=== PATIENT | female | born 1945 | race Caucasian/White ===

== ENCOUNTER 2019-06-05 07:46 | Observation (INO) | payer MEDICARE, SELFPAY ==
--- NOTE | ~2019-06-05 | CT_ITS ---
EXAMINATION: CT abdomen pelvis w con EXAM DATE: 06/05/2019 09:14 INDICATION: Hematochezia. TECHNIQUE: Spiral CT of the abdomen and pelvis was performed following intravenous injection of 100 m L Omnipaque 350. Axial, coronal and sagittal images were reviewed. The dose-length product (DLP) fo r this examination was 395.18 mGy-cm. The exposure was tailored according to patient size (auto mA e xposure control), and iterative reconstruction (ASIR) was used as additional dose reduction technique . Comparison is made to prior examination from 01/18/2016. FINDINGS: The liver, spleen, adrenal glands and pancreas are unremarkable. Gallbladder is unremarkab le. No biliary obstruction. Portal and splenic veins are patent. Kidneys enhance symmetrically. T here is no hydronephrosis. The uterus is unremarkable. The bladder is unremarkable. There is no retroperitoneal or pelvic lymphadenopathy. There is mild scattered arteriosclerotic disease. The appendix is not positively visualized. There is no pericecal inflammatory change to suggest appe ndicitis. The stomach and small bowel are unremarkable. There is edema of the descending and sigmo id colon, consistent with colitis, most likely infectious etiology. Previously seen right pleural ef fusion and atelectasis have resolved. The heart is normal in size. There are no pericardial or pleu ral effusions. The lung bases are unremarkable. There are no osteoblastic or osteolytic lesions annie ntified. Chronic L1 burst fracture, with interval healing compared to previous examination. IMPRESSION: 1. Descending and sigmoid colonic colitis. Reviewed, dictated and finalized at location [employer]
[2019-06-05 07:53] VITALS: BP 132/78; PULSE 97; RESP 20; TEMP 36.9; O2SAT 95
--- NOTE | 2019-06-05 08:05 | ED.ABDPAIN ---
HPI - Abdominal Pain General Chief Complaint: Abdominal Pain Stated Complaint: bloody stools Time Seen by Provider: 06/05/19 07:54 Source: patient Mode of arrival: ambulatory Limitations: no limitations History of Present Illness HPI narrative: Pt is a 73 y/o female who presents to the ED with c/o hematochezia since 2AM. Pt states that she has had 12 episodes of hematochezia and describes it as spots of bright red blood. He reports associated ABD cramping and nausea. She denies fever or vomiting. Pt takes 325mg of ASA daily. She has had x2 colonscopy's and she is scheduled to have another one on 07/06/[address] Roberto her GI specialist. MD elicited complaint: other (hematochezia) Pertinent past history: none Onset (ago): hour(s) (6) Pain Consistency: constant Quality: cramping Associated symptoms: nausea Related Data Home Medications Medication Instructions Recorded Confirmed calcium carbonate 500 mg (1,250 1 tablet PO TID 05/21/19 mg)-vitamin D3 200 unit tablet cholecalciferol (vitamin D3) 1,250 50,000 unit PO .twice monthly cap 05/21/19 mcg (50,000 unit) capsule fexofenadine 180 mg tablet 180 mg PO DAILY 05/21/19 letrozole 2.5 mg tablet 2.5 mg PO DAILY 05/21/19 lisinopril 10 mg tablet 10 mg PO DAILY 05/21/19 [id number] 0.4 mg-calcium 162 1 tablet PO DAILY 05/21/19 mg-iron 18 [id number]-[id number] tablet Allergies Allergy/AdvReac Type Severity Reaction Status Date / Time tamoxifen Allergy Unknown Verified 02/17/18 13:03 Review of Systems Review of Systems: All systems reviewed & are unremarkable except as noted in HPI and below Constitutional: Constitutional: Denies fever(s) Gastrointestinal: Gastrointestinal: Reports hematochezia, Reports GI cramping, Reports nausea and Denies vomiting PMF Past Medical History Medical History (Updated 06/05/19 @ 09:37 by Kirby Michele DO) DVT (deep venous thrombosis) HTN (hypertension) Hx of breast cancer Pulmonary embolism Right humeral fracture Surgical History Surgical History (Updated 06/05/19 @ 08:47 by Starla Ivory) H/O bilateral cataract extraction H/O colonoscopy H/O left breast biopsy H/O right mastectomy Social History Social History Smoking status: Never smoker Second hand tobacco smoke exposure: No Alcohol intake: never Exam Narrative: Exam Narrative: APPEARANCE: No acute distress, nontoxic, resting in bed HEENT: Normocephalic, atraumatic, OMM RESPIRATORY: No respiratory distress, clear to auscultation bilaterally with no rhonchi wheezing or rales CARDIOVASCULAR: RRR s murmur ABDOMINAL: Soft, nondistended, tender palpation right lower quadrant left lower quadrant, no tenderness in right upper quadrant left upper quadrant, no rebound or guarding MUSCULOSKELETAl: Moves all extremities. No clubbing, cyanosis or edema. NEURO: Awake and alert. Following commands, speech normal, no focal deficits SKIN:: Warm, dry. Normal Color PSYCHIATRIC: Normal affect/mood Course Course Emergency Course: Discussed with patient and family results of workup and diagnosis. Discussed need for admission. Patient and family understand and agree to current treatment plan Consultations Consultation #1: Discussed case with Dr. Roberto, pt's GI specialist. He recommends Rx Zosyn and he will follow up with pt. Date: 06/05/19 Time: 09:24 Consultation #2: Discussed case with Dr. Nunes, the hospitalist. Accepted admission. Date: 06/05/19 Time: 09:29 Vital Signs Vital signs: Vital Signs Temperature 98.4 F 06/05/19 07:53 Pulse Rate 97 06/05/19 07:53 Respiratory Rate 06/05/19 07:53 Blood Pressure 132/78 06/05/19 07:53 Pulse Oximetry 95 06/05/19 07:53 Temperature 98.4 F 06/05/19 07:53 Pulse Rate 97 06/05/19 07:53 Respiratory Rate 20 06/05/19 07:53 Blood Pressure 132/78 06/05/19 07:53 Pulse Oximetry 95 06/05/19 07:53 MDM - Abdominal Pain Lab Data Res
[2019-06-05 08:50] LABS: Basophils Percent Auto 0.2 % (0.2-1.2); Eosinophils Percent Auto 0.1 % (0-4.4); Hematocrit 44.2 % (37.0-47.0); Hemoglobin 14.5 g/dL (12.0-15.0); Immature Granulocyte Absolute 0.04 K/mm3 (0.00-0.031); Immature Granulocyte Percent A 0.3 % (0-0.5); Lymphocytes Absolute Auto 0.89 K/mm3 (0.9-3.2); Lymphocytes Percent Auto 7.3 % (18.3-44.2); Mean Corpuscular HGB Conc 32.8 g/dl (32-36); Mean Corpuscular Hemoglobin 29.9 pg (26-34); Mean Corpuscular Volume 91.1 fl (80-100); Mean Platelet Volume 8.7 fl (7.4-10.4); Monocytes Absolute Auto 0.7 K/mm3 (0.1-0.6); Monocytes Percent Auto 5.5 % (2.6-8.5); Neutrophils Absolute Auto 10.6 K/mm3 (1.3-6.7); Neutrophils Percent Auto 86.6 % (45.5-73.1); Platelet Count Result 354 k/mm3 (150-375); Red Blood Count 4.85 M/mm3 (4.2-5.4); Red Cell Distribution Width 13.5 % (11.5-14.5); White Blood Count 12.2 K/mm3 (4.5-10.0)
[2019-06-05 09:03] LABS: Alanine Aminotransferase 12 U/L (4-35); Albumin Level 3.9 g/dL (3.5-5.1); Alkaline Phosphatase 90 U/L (38-126); Aspartate Amino Transferase 21 U/L (14-36); Bilirubin,Total 0.3 mg/dL (0.2-1.3); Blood Urea Nitrogen 12 mg/dL (7-17); Calcium 8.9 mg/dL (8.4-10.2); Carbon Dioxide 24 mmol/L (22-30); Chloride 106 mmol/L (98-107); Estimated CRCL calculation 46 ml/min; Estimated Glomerular Filt Rate > 60; Glucose 104 mg/dL (65-105); Lipase 22 U/L (23-300); Potassium 3.8 mmol/L (3.4-5.0); Sodium 138 mmol/L (137-145)
[2019-06-05 09:28] LABS: Partial Thromboplastin Time 27.1 SECONDS (22.3-36.8); Prothrombin Time 12.8 Seconds (11.1-14.7)
[2019-06-05 11:05] VITALS: BP 119/71; PULSE 85; RESP 18; O2SAT 94
--- NOTE | 2019-06-05 11:18 | PC.NURSE ---
This patient, Lay Douglas, was admitted to 3 Medical Room 348-. Patient/family oriented to hospital policies and general routines including ID bracelet, bed and alarms, visiting hours, pain management, procedures, bathroom and other care routines, personal items, smoking policy, room service/diet, and visiting hours. Valuables list has been completed. Information on how to activate the Rapid Response Team has been discussed. Patient/Family are encouraged to report perceived risks to care and to ask questions if they do not understand what they are told or what they should do.
[2019-06-05 11:34] VITALS: BMI 26.6
[2019-06-05 11:40] VITALS: BMI 26.2
[2019-06-05 11:55] LABS: Hematocrit 45.8 % (37.0-47.0); Hemoglobin 14.9 g/dL (12.0-15.0)
[2019-06-05] MEDS: LACTATED RINGERS 1,000 ML 125 ML IV CONT (11:56)
[2019-06-05 11:58] VITALS: BP 132/82; PULSE 73; RESP 18; TEMP 36.6; O2SAT 97
--- NOTE | 2019-06-05 12:57 | WPDGICN ---
GI Consult Note Consult date/time: 06/05/19 12:57 HPI: This very pleasant 73-year-old female was seen in consultation at the request of the hospitalist in with the patient's admission. The patient was examined and chart was reviewed. Reason for consultation bloody diarrhea. Impression: He we have a very pleasant lady with bloody diarrhea and abnormal CT imaging. This is most likely to underlying colitis. Ischemic versus infectious colitis is in the differential. Inflammatory bowel disease consideration although, I doubt this is the case. History of diverticulosis coli. GERD with dysphagia. Underlying rare strictures in the differential. Zenker's diverticulum needs to be considered in view of the history. Hypertension. DVT/PE. Breast cancer. Status post chemotherapy, radiation therapy and mastectomy. Low bone mass. Vitamin-D deficiency. Healing burst fracture lumbar vertebrae. Recommendation: Stool C&S and C diff studies. Continue antibiotics. PPI. Pending patient's clinical course may consider colonoscopy. She continues to improve quickly may defer colonoscopy for 6-8 weeks. EGD has been scheduled as an outpatient. Will require esophagram to assess for underlying Zenker's diverticulum. History: This very pleasant lady was admitted the hospital with abrupt onset of abdominal pain, cramping and diarrhea. The diarrhea eventually became bloody in nature. She has no history of bloody diarrhea in the past. She reported nausea but no vomiting or hematemesis. She denied any fever or diaphoresis, but complained of chills. Recent antibiotic intake was denied. She admits to taking Aleve twice a day 2 times a week. patient has had previous colonoscopies revealing diverticulosis coli. Patient denies any exposure to illness. The cramping was in the lower part of the abdomen that began approximately 6:00 p.m. the day prior to admission. It continued throughout the night and eventually became bloody in nature. CT imaging was obtained revealing evidence of colitis involving the descending and sigmoid colon. Patient has a history of heartburn about once a day. She is having dysphagia to solid foods. She also has some dysphagia to liquid foods and pills. She feels that things get caught in her throat and she has to cough / vomit them up. This is been going on quite a while, but does not occur every day. She reports a 5 lb weight loss in the last year. The patient complains of a cough of whitish phlegm. She does admit to be bruising easily. Physical exam: General: Patient appears in no acute distress. HEENT: Head was normocephalic sclerae is clear mouth without masses neck was supple. Heart rate rhythm regular without S3 or S4. Lungs CTA. Abdomen is soft with no guarding or rigidity. Bowel sounds were active. Neurologic cranial nerves intact. No focal defects. No clonus. Musculoskeletal system revealed no joint tenderness or swelling no muscle atrophy. Extremities reveal no significant edema. Skin is warm and dry with normal turgor. Mental status is intact. Patient is alert and oriented. Review of Systems Review of Systems: All systems reviewed & are unremarkable except as noted in HPI and below PMFSH Past Medical History Medical History Burst fracture of lumbar vertebra with routine healing Diverticulosis DVT (deep venous thrombosis) HTN (hypertension) Hx of breast cancer Chemo/RTX Low bone mass Pulmonary embolism Vitamin D deficiency Surgical History Surgical History H/O bilateral cataract extraction H/O colonoscopy H/O left breast biopsy H/O right mastectomy H/O shoulder surgery Family History Family History Mother Hypertension, Onset Age: 89 Fibromyalgia Father Acute myocardial infarct
[2019-06-05 13:39] LABS: Hematocrit 43.3 % (37.0-47.0); Hemoglobin 14.2 g/dL (12.0-15.0); Mean Corpuscular HGB Conc 32.8 g/dl (32-36); Mean Corpuscular Volume 91.5 fl (80-100); Mean Platelet Volume 8.8 fl (7.4-10.4); Platelet Count Result 381 k/mm3 (150-375); Red Blood Count 4.73 M/mm3 (4.2-5.4); Red Cell Distribution Width 13.5 % (11.5-14.5); White Blood Count 11.6 K/mm3 (4.5-10.0)
[2019-06-05 13:53] LABS: Alanine Aminotransferase 11 U/L (4-35); Albumin Level 3.9 g/dL (3.5-5.1); Alkaline Phosphatase 88 U/L (38-126); Aspartate Amino Transferase 21 U/L (14-36); Bilirubin,Total 0.4 mg/dL (0.2-1.3); CRP 1.5 mg/dL (<1.0); Phosphorus 4.2 mg/dL (2.5-4.5)
[2019-06-05 14:00] VITALS: BP 141/70; PULSE 73; RESP 18; TEMP 36.3; O2SAT 96
[2019-06-05 14:22] LABS: Thyroid Stimulating Hormone 0.966 uIU/mL (0.465-4.680)
[2019-06-05 14:25] LABS: Free T4 Free Thyroxine 1.29 ng/mL (0.78-2.19)
[2019-06-05 15:41] VITALS: BMI 26.2
--- NOTE | 2019-06-05 15:44 | PM.IMHP ---
H&P: HPI History of Present Illness Chief complaint: Colitis/GI bleed Narrative: Lay Douglas is a 73 year old female who was in her usual state of health until 6:00 p.m. on June 04. At that time she had some chills and cramping in the lower abdomen. She developed some diarrhea with cramps before each episode. At about 2:00 a.m. she was awakened by sharp hypogastric pain and passed bright red blood in the stool. She describes it as ?a couple of splashes ?. Because the bright red blood she presented the emergency department. She denied fevers nausea vomiting upper abdominal pain chest pain shortness of breath dizziness lightheadedness syncope presyncope edema or palpitations. No other abnormal bleeding. No dysuria or hematuria. She has no prior history of rectal bleeding. She had a colonoscopy in 2012 and was actually scheduled for a follow-up colonoscopy next month. She has 2 paternal aunt who had colon cancer. No other family history of colon cancer. No prior history of polyps. Review of Systems Review of Systems: All systems reviewed & are unremarkable except as noted in HPI and below PMFSH Past Medical History Medical History (Updated 06/05/19 @ 15:52 by Moses Hendrix MD) Burst fracture of lumbar vertebra with routine healing Diverticulosis DVT (deep venous thrombosis) HTN (hypertension) Hx of breast cancer Chemo/RTX Low bone mass Pulmonary embolism Pure hypercholesterolemia Vitamin D deficiency Surgical History Surgical History (Updated 06/05/19 @ 15:46 by Moses Hendrix MD) H/O bilateral cataract extraction H/O colonoscopy 2012 H/O left breast biopsy H/O right mastectomy H/O shoulder surgery Family History Family History Mother Hypertension, Onset Age: 89 Fibromyalgia Father Acute myocardial infarction, Onset Age: 85 Patient's father is Other Family history of arthritis Family history of congenital heart disease Family history of malignant neoplasm Social History Social History Smoking status: Never smoker Second hand tobacco smoke exposure: No Alcohol intake: never Substance use: never Gender identity (if verbalized by the patient): Female Spiritual care concerns: No Agree to blood products: Yes Meds Home Medications and Allergies Home Medications Medication Instructions Recorded Confirmed Type aspirin 325 mg tablet 325 mg PO DAILY #1 tablet 05/21/19 06/05/19 Rx calcium carbonate 500 mg (1,250 1 tablet PO DAILY 05/21/19 06/05/19 History mg)-vitamin D3 200 unit tablet cholecalciferol (vitamin D3) 1,250 50,000 unit PO .twice monthly cap 05/21/19 06/05/19 History mcg (50,000 unit) capsule lisinopril 10 mg tablet 10 mg PO DAILY 05/21/19 06/05/19 History [id number]-zdr-PG 0.4 mg-calcium 162 1 tablet PO DAILY 05/21/19 06/05/19 History mg-iron 18 oh-lsqoqpq-iyrbbl tablet Allergies Allergy/AdvReac Type Severity Reaction Status Date / Time tamoxifen Allergy Unknown Verified 02/17/18 13:03 Vital Signs Vital Signs - 24 hr 06/05/19 07:53 06/05/19 11:05 06/05/19 11:58 Temperature 98.4 F 97.8 F Pulse Rate 97 85 73 Respiratory Rate 20 18 18 Blood Pressure 132/78 119/71 132/82 Pulse Oximetry 95 94 97 06/05/19 14:00 Temperature 97.4 F L Pulse Rate 73 Respiratory Rate 18 Blood Pressure 141/70 H Pulse Oximetry 96 Exam Narrative: Exam Narrative: HEENT: EOMI, PERRL, pharyngeal mucosa pink and intact NECK: No JVD, adenopathy, or thyromegaly CHEST: Clear to auscultation. Normal effort. HEART: NL S1/S2, regular, no murmur ABDOMEN: BS+, soft, TENDER TO PALPATION OF THE HYPOGASTRIUM AND BOTH LOWER QUADRANTS WITHOUT REBOUND OR GUARDING EXTREMITIES: No cyanosis, edema, or clubbing NEUROLOGIC: CN intact and symmetric to inspection. MUSCULOSKELETAL: Tone and strength symmetric. PSYCH: Alert. [place]
--- NOTE | 2019-06-05 15:59 | PCNSR ---
On 06/05/19, the student, Mary Sanz, provided care and completed [facility] documentation on this patient. I have reviewed the student's documentation and agree with the findings.
[2019-06-05 18:25] LABS: Hemoglobin 13.6 g/dL (12.0-15.0)
[2019-06-05 20:45] VITALS: PULSE 69; RESP 20; O2SAT 95
[2019-06-05 21:38] VITALS: BP 127/64; PULSE 69; RESP 20; TEMP 36.3; O2SAT 95
[2019-06-06 00:06] LABS: Hematocrit 39.1 % (37.0-47.0); Hemoglobin 12.9 g/dL (12.0-15.0)
[2019-06-06 05:34] VITALS: BP 110/58; PULSE 64; RESP 18; TEMP 36.1; O2SAT 95
[2019-06-06 06:45] LABS: Basophils Percent Auto 0.2 % (0.2-1.2); Eosinophils Absolute Auto 0.2 K/mm3 (0-0.3); Eosinophils Percent Auto 1.8 % (0-4.4); Hematocrit 39.3 % (37.0-47.0); Hemoglobin 12.9 g/dL (12.0-15.0); Immature Granulocyte Absolute 0.04 K/mm3 (0.00-0.031); Immature Granulocyte Percent A 0.4 % (0-0.5); Lymphocytes Absolute Auto 1.86 K/mm3 (0.9-3.2); Lymphocytes Percent Auto 18.9 % (18.3-44.2); Mean Corpuscular HGB Conc 32.8 g/dl (32-36); Mean Corpuscular Hemoglobin 29.8 pg (26-34); Mean Corpuscular Volume 90.8 fl (80-100); Mean Platelet Volume 8.8 fl (7.4-10.4); Monocytes Absolute Auto 0.9 K/mm3 (0.1-0.6); Monocytes Percent Auto 9.1 % (2.6-8.5); Neutrophils Absolute Auto 6.8 K/mm3 (1.3-6.7); Neutrophils Percent Auto 69.6 % (45.5-73.1); Platelet Count Result 363 k/mm3 (150-375); Red Blood Count 4.33 M/mm3 (4.2-5.4); Red Cell Distribution Width 13.7 % (11.5-14.5); White Blood Count 9.8 K/mm3 (4.5-10.0)
[2019-06-06 07:05] LABS: Blood Urea Nitrogen 8 mg/dL (7-17); CRP 2.5 mg/dL (<1.0); Calcium 8.5 mg/dL (8.4-10.2); Carbon Dioxide 26 mmol/L (22-30); Chloride 104 mmol/L (98-107); Estimated CRCL calculation 41 ml/min; Estimated Glomerular Filt Rate > 60; Glucose 94 mg/dL (65-105); Potassium 3.9 mmol/L (3.4-5.0); Sodium 139 mmol/L (137-145)
[2019-06-06 08:45] VITALS: PULSE 64; RESP 18; O2SAT 95
--- NOTE | 2019-06-06 10:07 | WPDGIPROGNO ---
Subjective Date/time seen: 06/06/19 10:07 This very pleasant lady's feeling better. Having no further diarrhea or bleeding. Blood work has been reviewed. Tolerating clear liquids. No significant abdominal pain reported. General: very pleasant patient in no acute distress. HEENT: Head was normocephalic sclerae is clear mouth without masses neck was supple. Heart: Rate rhythm regular without S3 or S4. Lungs: CTA. Abdomen: Soft with no guarding or rigidity. Bowel sounds were active. Neurologic: Cranial nerves 2 through 12 intact. No focal defects. No clonus. Musculoskeletal system: Revealed no joint tenderness or swelling no muscle atrophy. Extremities: Reveal no significant edema. Skin: Warm and dry with normal turgor. Mental status: intact. Patient is alert and oriented. Impression: He we have a very pleasant lady with bloody diarrhea and abnormal CT imaging. This is most likely to underlying colitis. Ischemic versus infectious colitis is in the differential. Inflammatory bowel disease consideration although, I doubt this is the case. History of diverticulosis coli. GERD with dysphagia. Underlying rare strictures in the differential. Zenker's diverticulum needs to be considered in view of the history. Hypertension. DVT/PE. Breast cancer. Status post chemotherapy, radiation therapy and mastectomy. Low bone mass. Vitamin-D deficiency. Healing burst fracture lumbar vertebrae. Recommendation: Advance diet as tolerated. Stool cultures pending. C diff pending. Will plan outpatient colonoscopy in 6-8 weeks. If patient develops any significant bleeding or increasing abdominal pain will proceed with flexible sigmoidoscopy/ colonoscopy earlier. Outpatient esophagram prior to EGD. Objective Data Vital Signs Vital Signs: Vital Signs - 24 hr 06/05/19 11:05 06/05/19 11:58 06/05/19 14:00 Temperature 36.6 C 36.3 C L Pulse Rate 85 73 73 Respiratory Rate 18 18 18 Blood Pressure 119/71 132/82 141/70 H Pulse Oximetry 94 97 96 06/05/19 20:45 06/05/19 21:38 06/06/19 05:34 Temperature 36.3 C L 36.1 C L Pulse Rate 69 69 64 Respiratory Rate 20 20 18 Blood Pressure 127/64 110/58 L Pulse Oximetry 95 95 95 Intake/Output Intake/Output: Intake & Output 06/03/19 06/04/19 06/05/19 06/06/19 23:59 23:59 23:59 23:59 Intake Total 1420 571 Output Total 300 Balance 1420 271 Meds/Results Medications: Active Medications Generic Name Dose Route Start Last Admin Trade Name Freq PRN Reason Stop Dose Admin Guaifenesin/Dextromethorphan 5 ml 06/05/19 12:52 Robitussin-Dm Syrup PO Q4H PRN Cough Piperacillin/Tazobactam/Dextrose 3.375 gm in 50 mls @ 100 mls/hr 06/05/19 16:00 06/06/19 09:59 Zosyn 3.375 Gm/D5w 50ml Pm IVPB 100 mls/hr Q6H GREER Administration Potassium Cl/Dextrose/Lact Ringer's 1,000 mls @ 90 mls/hr 06/05/19 16:30 06/06/19 09:59 Kcl 20 Meq/D5lr IV CONT 0 mls/hr .Q11H7M GREER Infusion Radiology Results: ITS Impressions Abdomen/Pelvis CT 06/05/19 09:17 IMPRESSION: 1. Descending and sigmoid colonic colitis. Labs Labs: Laboratory Results - last 24 hr 06/05/19 06/05/19 06/05/19 11:35 13:32 13:32 WBC RBC Hgb 14.9 Hct 45.8 MCV MCH MCHC RDW Plt Count MPV Immature Gran % (Auto) Neut % (Auto) Lymph % (Auto) [place] % (Auto) Eos % (Auto) Baso % (Auto) Lymph # (Auto) [place] # (Auto) Eos # (Auto) Baso # (Auto) Abs Immat Gran (auto) Absolute Neuts (auto) Absolute Nucleated RBC Nucleated RBC % PT INR Sodium Potassium Chloride Carbon Dioxide BUN Creatinine Estim Creat Clear Calc Estimated GFR Glucose Calcium Phosphorus Magnesium Total Bilirubin Direct Bilirubin AST ALT Alkaline Phosphatase C-Reactive Protein Total Protein Albumin TSH 0.966 Free T4
[2019-06-06 11:06] LABS: Hematocrit 41.6 % (37.0-47.0); Hemoglobin 13.4 g/dL (12.0-15.0); Mean Corpuscular HGB Conc 32.2 g/dl (32-36); Mean Corpuscular Volume 93.1 fl (80-100); Mean Platelet Volume 8.6 fl (7.4-10.4); Platelet Count Result 347 k/mm3 (150-375); Red Blood Count 4.47 M/mm3 (4.2-5.4); Red Cell Distribution Width 14.1 % (11.5-14.5); White Blood Count 9.3 K/mm3 (4.5-10.0)
[2019-06-06] MEDS: PANTOPRAZOLE 40 MG TABLET PO ×2 (11:06→21:33)
[2019-06-06 11:20] LABS: Blood Urea Nitrogen 7 mg/dL (7-17); Calcium 8.5 mg/dL (8.4-10.2); Carbon Dioxide 24 mmol/L (22-30); Chloride 107 mmol/L (98-107); Estimated CRCL calculation 41 ml/min; Estimated Glomerular Filt Rate > 60; Glucose 108 mg/dL (65-105); Magnesium 1.9 mg/dL (1.6-2.3); Phosphorus 3.5 mg/dL (2.5-4.5); Potassium 3.7 mmol/L (3.4-5.0); Sodium 140 mmol/L (137-145)
[2019-06-06] MEDS: metroNIDAZOLE 250 MG TABLET 500 MG PO ×2 (13:29→21:33)
[2019-06-06 14:00] VITALS: BP 111/72; PULSE 79; RESP 20; TEMP 36.2; O2SAT 97
--- NOTE | 2019-06-06 14:49 | PM.IMPN ---
Progress Note: A&P Assessment and Plan (1) Acute GI bleeding: Code(s): K92.2 - Gastrointestinal hemorrhage, unspecified Status: Acute Assessment and Plan: Clinically due to acute colitis as seen on CT scan Acute episode seems to have subsided Monitor hemoglobin and hematocrit (2) Colitis: Code(s): K52.9 - Noninfective gastroenteritis and colitis, unspecified Status: Acute Assessment and Plan: As indicated by CT scanning, descending and sigmoid Differential diagnosis includes infectious, ischemic, inflammatory bowel disease Stool for enteric pathogens, Clostridium difficile, giardiasis, rotavirus Empiric IV Zosyn Advanced diet IV fluids to saline lock if diet tolerated Colonoscopy per GI travel sales consultant (3) History of deep venous thrombosis or pulmonary embolus: Status: Acute Assessment and Plan: Mechanical DVT prophylaxis due to acute bleeding Subjective Date/time seen: 06/06/19 14:49 Interval history: No further bowel movements. Mild intermittent lower abdominal cramps. Tolerating diet. No chest pain or shortness of breath. No dizziness or palpitations. No rectal bleeding. No dysuria or hematuria. No weakness or numbness. No dizziness. Review of Systems Review of Systems: All systems reviewed & are unremarkable except as noted in HPI and below Exam Narrative: Exam Narrative: HEENT: EOMI, PERRL, pharyngeal mucosa pink and intact NECK: No JVD, adenopathy, or thyromegaly CHEST: Clear to auscultation. Normal effort. HEART: NL S1/S2, regular, no murmur ABDOMEN: BS+, soft, TENDER TO PALPATION OF THE HYPOGASTRIUM WITHOUT REBOUND OR GUARDING EXTREMITIES: No cyanosis, edema, or clubbing NEUROLOGIC: CN intact and symmetric to inspection. MUSCULOSKELETAL: Tone and strength symmetric. PSYCH: Alert. Oriented to person, place, and time. Objective Data Vital Signs Vital Signs: Vital Signs - 24 hr 06/05/19 20:45 06/05/19 21:38 06/06/19 05:34 Temperature 97.3 F L 97 F L Pulse Rate 69 69 64 Respiratory Rate 20 20 18 Blood Pressure 127/64 110/58 L Pulse Oximetry 95 95 95 06/06/19 08:45 06/06/19 14:00 Temperature 97.2 F L Pulse Rate 64 79 Respiratory Rate 18 20 Blood Pressure 111/72 Pulse Oximetry 95 97 Intake/Output Intake/Output: Intake & Output 06/03/19 06/04/19 06/05/19 06/06/19 23:59 23:59 23:59 23:59 Intake Total 1420 1340 Output Total 300 Balance 1420 1040 Meds/Results Medications: Active Medications Generic Name Dose Route Start Last Admin Trade Name Freq PRN Reason Stop Dose Admin Guaifenesin/Dextromethorphan 5 ml 06/05/19 12:52 Robitussin-Dm Syrup PO Q4H PRN Cough Potassium Cl/Dextrose/Lact Ringer's 1,000 mls @ 90 mls/hr 06/05/19 16:30 06/06/19 12:03 Kcl 20 Meq/D5lr IV CONT 90 mls/hr .Q11H7M GREER Administration Levofloxacin 500 mg 06/06/19 09:00 06/06/19 11:06 Levaquin Tab PO 500 mg DAILY GREER Administration Metronidazole 500 mg 06/06/19 14:00 06/06/19 13:29 Flagyl PO 500 mg Q8HR GREER Administration Pantoprazole Sodium 40 mg 06/06/19 10:25 06/06/19 11:06 Protonix PO 40 mg Q12HR GREER Administration Radiology Results: ITS Impressions Abdomen/Pelvis CT 06/05/19 09:17 IMPRESSION: 1. Descending and sigmoid colonic colitis. Labs Labs: Laboratory Results - last 24 hr 06/05/19 06/05/19 06/05/19 13:32 13:32 13:32 WBC 11.6 H RBC 4.73 Hgb 14.2 Hct 43.3 MCV 91.5 MCH 30.0 MCHC 32.8 RDW 13.5 Plt Count 381 H MPV 8.8 Immature Gran % (Auto) Neut % (Auto) Lymph % (Auto) [place] % (Auto) Eos % (Auto) Baso % (Auto) Lymph # (Auto) [place] # (Auto) Eos # (Auto) Baso # (Auto) Abs Immat Gran (auto) Absolute Neuts (auto) Absolute Nucleated RBC Nucleated RBC % PT INR Sodium Potassium Chloride Carbon Dioxide BUN Creatinine Estim Creat Clear
[2019-06-06 20:35] VITALS: PULSE 86; RESP 14; O2SAT 96
[2019-06-06 21:33] VITALS: BP 115/69; PULSE 86; RESP 14; TEMP 36.6; O2SAT 96
[2019-06-07] MEDS: metroNIDAZOLE 250 MG TABLET 500 MG PO ×3 (05:49→21:23)
[2019-06-07 06:00] VITALS: BP 121/66; PULSE 76; RESP 14; TEMP 36.1; O2SAT 96
[2019-06-07 08:45] VITALS: PULSE 76; RESP 14; O2SAT 96
[2019-06-07] MEDS: PANTOPRAZOLE 40 MG TABLET PO ×2 (08:45→21:22)
[2019-06-07 10:35] LABS: Hematocrit 41.1 % (37.0-47.0); Hemoglobin 13.2 g/dL (12.0-15.0); Mean Corpuscular HGB Conc 32.1 g/dl (32-36); Mean Corpuscular Hemoglobin 30.1 pg (26-34); Mean Corpuscular Volume 93.6 fl (80-100); Mean Platelet Volume 8.7 fl (7.4-10.4); Platelet Count Result 361 k/mm3 (150-375); Red Blood Count 4.39 M/mm3 (4.2-5.4); Red Cell Distribution Width 13.9 % (11.5-14.5); White Blood Count 9.1 K/mm3 (4.5-10.0)
[2019-06-07 10:49] LABS: Blood Urea Nitrogen 12 mg/dL (7-17); CRP 2.2 mg/dL (<1.0); Calcium 8.7 mg/dL (8.4-10.2); Carbon Dioxide 24 mmol/L (22-30); Chloride 104 mmol/L (98-107); Estimated CRCL calculation 41 ml/min; Estimated Glomerular Filt Rate > 60; Glucose 113 mg/dL (65-105); Potassium 4.4 mmol/L (3.4-5.0); Sodium 141 mmol/L (137-145)
[2019-06-07 14:00] VITALS: BP 124/65; PULSE 72; RESP 16; TEMP 36.3; O2SAT 98
--- NOTE | 2019-06-07 17:43 | PM.IMPN ---
Progress Note: A&P Assessment and Plan (1) Acute GI bleeding: Code(s): K92.2 - Gastrointestinal hemorrhage, unspecified Status: Acute Assessment and Plan: Clinically due to acute colitis as seen on CT scan Acute episode seems to have subsided Monitor hemoglobin and hematocrit (2) Colitis: Code(s): K52.9 - Noninfective gastroenteritis and colitis, unspecified Status: Acute Assessment and Plan: As indicated by CT scanning, descending and sigmoid Differential diagnosis includes infectious, ischemic, inflammatory bowel disease Stool for enteric pathogens, Clostridium difficile, giardiasis, rotavirus Empiric IV Zosyn Low fiber diet Colonoscopy per GI management consultant (3) History of deep venous thrombosis or pulmonary embolus: Status: Acute Assessment and Plan: Mechanical DVT prophylaxis due to acute bleeding Subjective Date/time seen: 06/07/19 17:43 Interval history: Small amount of rectal bleeding today. Minimal lower abdominal cramps. Review of Systems Review of Systems: All systems reviewed & are unremarkable except as noted in HPI and below Exam Narrative: Exam Narrative: HEENT: EOMI, PERRL, pharyngeal mucosa pink and intact NECK: No JVD, adenopathy, or thyromegaly CHEST: Clear to auscultation. Normal effort. HEART: NL S1/S2, regular, no murmur ABDOMEN: BS+, soft, TENDER TO PALPATION OF THE HYPOGASTRIUM WITHOUT REBOUND OR GUARDING EXTREMITIES: No cyanosis, edema, or clubbing NEUROLOGIC: CN intact and symmetric to inspection. MUSCULOSKELETAL: Tone and strength symmetric. PSYCH: Alert. Oriented to person, place, and time. Objective Data Vital Signs Vital Signs: Vital Signs - 24 hr 06/06/19 20:35 06/06/19 21:33 06/07/19 06:00 Temperature 97.8 F 97.0 F L Pulse Rate 86 86 76 Respiratory Rate 14 14 14 Blood Pressure 115/69 121/66 Pulse Oximetry 96 96 96 06/07/19 08:45 06/07/19 14:00 Temperature 97.3 F L Pulse Rate 76 72 Respiratory Rate 14 16 Blood Pressure 124/65 Pulse Oximetry 96 98 Intake/Output Intake/Output: Intake & Output 06/04/19 06/05/19 06/06/19 06/07/19 23:59 23:59 23:59 23:59 Intake Total 1420 3172 1130 Output Total 1800 1275 Balance 1420 1372 -145 Meds/Results Medications: Active Medications Generic Name Dose Route Start Last Admin Trade Name Freq PRN Reason Stop Dose Admin Guaifenesin/Dextromethorphan 5 ml 06/05/19 12:52 Robitussin-Dm Syrup PO Q4H PRN Cough Levofloxacin 500 mg 06/06/19 09:00 06/07/19 08:45 Levaquin Tab PO 500 mg DAILY GREER Administration Metronidazole 500 mg 06/06/19 14:00 06/07/19 13:52 Flagyl PO 500 mg Q8HR GREER Administration Pantoprazole Sodium 40 mg 06/06/19 10:25 06/07/19 08:45 Protonix PO 40 mg Q12HR GREER Administration Radiology Results: ITS Impressions Abdomen/Pelvis CT 06/05/19 09:17 IMPRESSION: 1. Descending and sigmoid colonic colitis. Labs Labs: Laboratory Results - last 24 hr 06/07/19 06/07/19 10:24 10:24 WBC 9.1 RBC 4.39 Hgb 13.2 Hct 41.1 MCV 93.6 MCH 30.1 MCHC 32.1 RDW 13.9 Plt Count 361 MPV 8.7 Sodium 141 Potassium 4.4 Chloride 104 Carbon Dioxide 24 BUN 12 D Creatinine 0.90 Estim Creat Clear Calc 41 Estimated GFR > 60 Glucose 113 H Calcium 8.7 C-Reactive Protein 2.2 H Quality VTE Prophylaxis VTE prophylaxis: mechanical ordered
[2019-06-07 22:00] VITALS: BP 132/66; PULSE 70; RESP 16; TEMP 36.2; O2SAT 96
[2019-06-08 06:00] VITALS: BP 132/70; PULSE 69; RESP 16; TEMP 36.8; O2SAT 96
[2019-06-08 06:06] LABS: Mean Corpuscular HGB Conc 33.3 g/dl (32-36); Mean Corpuscular Hemoglobin 30.5 pg (26-34); Mean Corpuscular Volume 91.5 fl (80-100); Mean Platelet Volume 8.8 fl (7.4-10.4); Platelet Count Result 391 k/mm3 (150-375); Red Blood Count 4.26 M/mm3 (4.2-5.4); Red Cell Distribution Width 13.6 % (11.5-14.5); White Blood Count 8.4 K/mm3 (4.5-10.0)
[2019-06-08] MEDS: metroNIDAZOLE 250 MG TABLET 500 MG PO ×2 (06:09→13:21)
[2019-06-08 06:28] LABS: Blood Urea Nitrogen 14 mg/dL (7-17); CRP 1.5 mg/dL (<1.0); Calcium 8.8 mg/dL (8.4-10.2); Carbon Dioxide 25 mmol/L (22-30); Chloride 103 mmol/L (98-107); Estimated CRCL calculation 41 ml/min; Estimated Glomerular Filt Rate > 60; Glucose 86 mg/dL (65-105); Potassium 3.9 mmol/L (3.4-5.0); Sodium 139 mmol/L (137-145)
[2019-06-08] MEDS: PANTOPRAZOLE 40 MG TABLET PO (09:02)
--- NOTE | 2019-06-08 11:47 | PCDIET ---
Nutrition Follow-Up Complete: Altered GI function related to colitis as evidenced by abdominal pain and hematochezia. Patient will consume greater than 75% of meals. Goal met. Pt has consumed 100% of meals. Nutrition recommendation: Recommend continuation of low-fiber diet until gut function has improved. Advance to high-fiber as tolerated and medically appropriate. Last recorded weight is 67.3 kg. Bowel Motility:+BM 06/08 Labs Reviewed: Na(139), K(3.9), CRP(1.5), Ca(8.8), Cr(0.9), Glu(86) Meds Noted:Protonix, levaquin. Flagyl Additional Notes: Pt states she is feeling much better. No N/V or abdominal pain. Says she is tolerating low-fiber diet well. States she was provided handout regarding current low-fiber diet. She had no questions regarding current diet order nor the eventual advancement to a high-fiber/Regular diet. Will monitor intake, tolerance to diet, and labs. Will follow up in 3 days.
--- NOTE | 2019-06-08 14:06 | PM.DS ---
DS: Diagnosis Admitting Diagnosis Admitting Diagnosis: Gastrointestinal hemorrhage, unspecified Discharge Diagnosis (1) Acute GI bleeding: Code(s): K92.2 - Gastrointestinal hemorrhage, unspecified Status: Acute Assessment and Plan: Clinically due to acute colitis as seen on CT scan Acute episode seems to have subsided Monitor hemoglobin and hematocrit (2) Colitis: Code(s): K52.9 - Noninfective gastroenteritis and colitis, unspecified Status: Acute Assessment and Plan: As indicated by CT scanning, descending and sigmoid Differential diagnosis includes infectious, ischemic, inflammatory bowel disease Stool for enteric pathogens, Clostridium difficile, giardiasis, rotavirus Empiric IV Zosyn Low fiber diet Colonoscopy per GI software developer consultant (3) History of deep venous thrombosis or pulmonary embolus: Status: Acute Assessment and Plan: Mechanical DVT prophylaxis during hospitalization DS: Summary Hospital Course Reason for hospitalization: abdominal pain with hematochezia Hospital Course: Lay Douglas is a 73 year old female who was in her usual state of health until 6:00 p.m. on June 04. At that time she had some chills and cramping in the lower abdomen. She developed some diarrhea with cramps before each episode. At about 2:00 a.m. she was awakened by sharp hypogastric pain and passed bright red blood in the stool. She describes it as ?a couple of splashes ?. Because the bright red blood she presented the emergency department. Trated empirically with Zosyn and bowel rest. Gradually improved. Bleeding resolved. Hemoglobin did not fall below the normal range. Time Spent with Patient Time attestation: Total time spent providing and/or coordinating discharge services: Exam Narrative: Exam Narrative: HEENT: EOMI, PERRL, pharyngeal mucosa pink and intact NECK: No JVD, adenopathy, or thyromegaly CHEST: Clear to auscultation. Normal effort. HEART: NL S1/S2, regular, no murmur ABDOMEN: BS+, soft, TENDER TO PALPATION OF THE HYPOGASTRIUM WITHOUT REBOUND OR GUARDING EXTREMITIES: No cyanosis, edema, or clubbing NEUROLOGIC: CN intact and symmetric to inspection. MUSCULOSKELETAL: Tone and strength symmetric. PSYCH: Alert. Oriented to person, place, and time. DS: Data Data Completed and Pending Labs on day of discharge: Labs from last 24 hours 06/08/19 06/08/19 05:16 05:16 WBC 8.4 RBC 4.26 Hgb 13.0 Hct 39.0 MCV 91.5 MCH 30.5 MCHC 33.3 RDW 13.6 Plt Count 391 H MPV 8.8 Sodium 139 Potassium 3.9 Chloride 103 Carbon Dioxide 25 BUN 14 Creatinine 0.90 Estim Creat Clear Calc 41 Estimated GFR > 60 Glucose 86 Calcium 8.8 C-Reactive Protein 1.5 H Discharge Plan Discharge Attending physician on discharge: Moses Hendrix Consulting providers: Francisco Roberto ; Sung Hagen Discharging Clinician: Moses Hendrix Patient Disposition: Home, Self-Care Activity: as tolerated Diet: other - see discharge instructions Discharge Instructions: Diet: soft foods, bite sized pieces Lisinopril was discontinued due to low normal blood pressures while hospitalized. Monitor blood pressure daily and resume if pressure exceeds 140/90. Ask Dr. Francis about this at you office visit. Patient Instructions: Antibiotic Form, Gastrointestinal Bleeding (DC), Rectal Bleeding (DC), Pain Management (DC) Stand Alone Forms: General Discharge Information Follow-up/Referrals: Ángel Francis DO [Primary Care Provider] - 1 Week Francisco Roberto DO [Physician] - 07/06/19 (Keep appt 07/[address] Roberto's office will contact you regarding an UGI x-ray prior to that. They will schedule your colonoscopy in 4-6 weeks. ) Discharge Medications: Discontinued aspirin 325 mg tablet 325 mg PO DAILY Qty: 1 RF: 0 lisinopril 10 mg tablet 10 mg PO DAILY RF: 0 No Action cholecalciferol (vitamin D3) 1,250 mcg (50,000
--- NOTE | 2019-06-08 14:37 | PCNSR ---
On 06/08/19, the student, Mary Sanz, provided care and completed [facility] documentation on this patient. I have reviewed the student's documentation and agree with the findings.
[2019-06-11 10:59] LABS: Vitamin D 1,25 (OH)2 Total 54 pg/mL (18-72); Vitamin D2 1,25 (OH)2 25 pg/mL; Vitamin D3 1,25 (OH)2 29 pg/mL
== END 2019-06-08 16:14 | disposition home or self-care (01) ==
LOC: ANHED 09:37 → ANH3MED 11:06
PROVIDERS: Internal Medicine Gastroenterology; Admitting Provider Family Medicine; Emergency Provider Emergency Medicine; PCP Internal Medicine; Visit Provider Internal Medicine
DX: K92.1 Melena (principal); K52.9 Noninfective gastroenteritis and colitis, unspecified; K21.9 Gastro-esophageal reflux disease without esophagitis; R13.10 Dysphagia, unspecified; I10 Essential (primary) hypertension; E78.00 Pure hypercholesterolemia, unspecified; E55.9 Vitamin D deficiency, unspecified; Z85.3 Personal history of malignant neoplasm of breast; Z86.711 Personal history of pulmonary embolism; Z86.718 Personal history of other venous thrombosis and embolism
CPT/HCPCS: 36415; 74177; 80048; 80053; 80076; 82652; 83605; 83690; 83735; 84100; 84439; 84443; 85014; 85018; 85025; 85027; 85610; 85730; 86140; 86850; 86900; 86901; 87015; 87045; 87046; 87269; 87272; 87324; 87427; 96361; 96365; 96366; 96367; 99285; A9270; G0378; J2543; J3480; J7120; Q9967

== ENCOUNTER 2019-09-14 08:48 | Outpatient (CLI) | payer MEDICARE, SELFPAY | END 2019-09-14 08:49 | disposition home or self-care (01) | PROVIDERS: PCP Internal Medicine; Visit Provider Internal Medicine Gastroenterology | DX: Z01.812 Encounter for preprocedural laboratory examination (principal); Z20.828 Contact with and (suspected) exposure to other viral communicable diseases | CPT/HCPCS: 87635; C9803; U0003 ==

== ENCOUNTER 2019-09-17 06:45 | Day surgery (SDC) | payer MEDICARE, SELFPAY ==
[2019-07-13 13:21] VITALS: BMI 26.6
[2019-09-11 14:37] VITALS: BMI 26.7
[2019-09-17 06:50] VITALS: BP 147/84; PULSE 88; RESP 16; TEMP 36.9; O2SAT 94
[2019-09-17] MEDS: LACTATED RINGERS 1,000 ML 150 ML IV CONT (07:11)
--- NOTE | 2019-09-17 07:35 | WPDANESEPPF ---
Anes - Initial Pre Proc Eval Procedure: Operation Date: 09/17/19 08:00 Proposed Procedures p Esophagogastroduodenoscopy - Francisco Roberto DO Date/Time: 09/17/19 07:35 Surgeon: Francisco Roberto DO Pre Op Diagnosis: Dysphagia Patient Data Age: 74 Gender: F Height: 1.6 m Weight: 71.8 kg Last Vital Signs Temp 36.9 C 09/17/19 06:50 Pulse 88 09/17/19 06:50 Resp 16 09/17/19 06:50 BP 147/84 H 09/17/19 06:50 Pulse Ox 94 09/17/19 06:50 Allergies Allergy/AdvReac Type Severity Reaction Status Date / Time tamoxifen Allergy Severe rash, Verified 09/17/19 07:00 blood clots Home Medications Medication Instructions Recorded Confirmed Type cholecalciferol (vitamin D3) 1,250 50,000 unit PO DIRECTED tablet 06/17/19 09/17/19 History mcg (50,000 unit) tablet pantoprazole 40 mg PO BID 09/16/19 09/17/19 History Patient hx anesthesia problems: none Family hx anesthesia problems: none [facility] Social History Social History Smoking status: Never smoker Second hand tobacco smoke exposure: No Alcohol intake: never Substance use: never Gender identity (if verbalized by the patient): Female Spiritual care concerns: No Agree to blood products: Yes Anes - Eval Final PreProcedure Day of Procedure 09/17/19 07:35 Patient weight: overweight Heart: regular rate and rhythm Lungs: clear to auscultation and normal air movement Airway: Mallampati scale class IV Neurological: alert and oriented Last oral intake: >/= 8 hours ASA classification: III Emergent: no Anesthetic plan: proceed Anesthesia type and monitoring: general GIVS and standard monitoring Informed Consent: The patient's anesthetic plan and its attendant risks and benefits were discussed with the patient/family/POA. Questions were solicited and answers provided to the satisfaction of the patient/family/POA.
--- NOTE | 2019-09-17 08:09 | PM.IMHP ---
H&P: HPI History of Present Illness Chief complaint: Dysphagia Narrative: Lay Douglas is a 74 year old female There is here for EGD. Impression: GERD with dysphagia. Will evaluate for ring or stricture. Recent ischemic colitis. Per past medical history. Recommendation: EGD. Colonoscopy schedule. History: This very pleasant lady's being evaluated for reflux disease and dysphagia. She is here for EGD to assess for lying ring or stricture. Since increasing the Protonix to b.i.d. or symptoms have improved, however she continues to have intermittent dysphagia. The patient does have a history of recent GI bleeding and abdominal pain. She was determined to have possible ischemic colitis. Colonoscopy will be scheduled in the future. She does have a family history of colon cancer . Review of Systems Review of Systems: All systems reviewed & are unremarkable except as noted in HPI and below PMFSH Past Medical History Medical History (Updated 09/17/19 @ 08:11 by Francisco Roberto DO) Burst fracture of lumbar vertebra with routine healing Diverticulosis DVT (deep venous thrombosis) GERD (gastroesophageal reflux disease) HTN (hypertension) Hx of breast cancer Chemo/RTX Ischemic colitis Low bone mass Pulmonary embolism Pure hypercholesterolemia Vitamin D deficiency Surgical History Surgical History H/O bilateral cataract extraction H/O colonoscopy 2012 H/O left breast biopsy H/O right mastectomy H/O shoulder surgery Social History Social History Smoking status: Never smoker Second hand tobacco smoke exposure: No Alcohol intake: never Substance use: never Gender identity (if verbalized by the patient): Female Spiritual care concerns: No Agree to blood products: Yes Meds Home Medications and Allergies Home Medications Medication Instructions Recorded Confirmed Type cholecalciferol (vitamin D3) 1,250 50,000 unit PO DIRECTED tablet 06/17/19 09/17/19 History mcg (50,000 unit) tablet pantoprazole 40 mg PO BID 09/16/19 09/17/19 History Allergies Allergy/AdvReac Type Severity Reaction Status Date / Time tamoxifen Allergy Severe rash, Verified 09/17/19 07:00 blood clots Vital Signs Vital Signs - 24 hr 09/17/19 06:50 Temperature 36.9 C Pulse Rate 88 Respiratory Rate 16 Blood Pressure 147/84 H Pulse Oximetry 94 Exam Narrative: Exam Narrative: General: very pleasant patient in no acute distress. HEENT: Head was normocephalic sclerae is clear mouth without masses neck was supple. Heart: Rate rhythm regular without S3 or S4. Lungs: CTA. Abdomen: Soft with no guarding or rigidity. Bowel sounds were active. Neurologic: Cranial nerves 2 through 12 intact. No focal defects. No clonus. Musculoskeletal system: Revealed no joint tenderness or swelling no muscle atrophy. Extremities: Reveal no significant edema. Skin: Warm and dry with normal turgor. Mental status: intact. Patient is alert and oriented.
--- NOTE | 2019-09-17 08:33 | SUR.OPER ---
BALLOON DILATATION STARTED WITH 6MM UP TO 10MM LOT [id number], EXP AND [id number] EXP
[2019-09-17 08:35] VITALS: BP 124/73; PULSE 72; RESP 21; O2SAT 98
[2019-09-17 08:45] VITALS: BP 139/80; PULSE 70; RESP 16; O2SAT 99
[2019-09-17 08:55] VITALS: BP 147/82; PULSE 73; RESP 17; O2SAT 98
== END 2019-09-17 09:00 | disposition home or self-care (01) ==
PROVIDERS: PCP Internal Medicine; Visit Provider Internal Medicine Gastroenterology
PROC: 0DJ08ZZ Inspection of Upper Intestinal Tract, Via Natural or Artificial Opening Endoscopic (ICD-10-PCS; CPT 43235; principal; 2019-09-17 08:00)
DX: K22.2 Esophageal obstruction (principal); K21.9 Gastro-esophageal reflux disease without esophagitis; K44.9 Diaphragmatic hernia without obstruction or gangrene; K22.70 Barrett's esophagus without dysplasia
CPT/HCPCS: 43239; 43249; 87081; 88305; 88313; C1726; J2704; J7120

== ENCOUNTER 2019-09-29 00:38 | Outpatient (CLI) | payer MEDICARE, SELFPAY ==
[2019-09-29 18:39] LABS: SARS-CoV-2 RNA PCR Negative
== END 2019-09-29 00:39 | disposition home or self-care (01) ==
LOC: ANHCOVIDDT 00:38
PROVIDERS: PCP Internal Medicine; Visit Provider Internal Medicine Gastroenterology
DX: Z01.818 Encounter for other preprocedural examination (principal); Z11.59 Encounter for screening for other viral diseases
CPT/HCPCS: 87635; C9803; U0003

== ENCOUNTER 2019-10-01 05:26 | Day surgery (SDC) | payer MEDICARE, SELFPAY ==
[2019-09-16 12:10] VITALS: BMI 25.7
[2019-10-01 10:19] VITALS: BP 126/75; PULSE 81; RESP 16; TEMP 37.1; O2SAT 97
[2019-10-01] MEDS: LACTATED RINGERS 1,000 ML 150 ML IV CONT (10:24)
--- NOTE | 2019-10-01 10:26 | WPDANESEPPF ---
Anes - Initial Pre Proc Eval Procedure: Operation Date: 10/01/19 10:30 Proposed Procedures p Esophagogastroduodenoscopy & Colonoscopy - Francisco Roberto DO Date/Time: 10/01/19 10:26 Surgeon: Francisco Roberto DO Pre Op Diagnosis: Colitis,Stricture Patient Data Age: 74 Gender: F Height: 5 ft 3 in Weight: 69.4 kg Last Vital Signs Temp 98.7 F 10/01/19 10:19 Pulse 81 10/01/19 10:19 Resp 16 10/01/19 10:19 BP 126/75 10/01/19 10:19 Pulse Ox 97 10/01/19 10:19 Allergies Allergy/AdvReac Type Severity Reaction Status Date / Time tamoxifen Allergy Severe rash, Verified 10/01/19 10:18 blood clots Home Medications Medication Instructions Recorded Confirmed Type cholecalciferol (vitamin D3) 1,250 50,000 unit PO DIRECTED tablet 06/17/19 10/01/19 History mcg (50,000 unit) tablet pantoprazole 40 mg PO BID 09/16/19 10/01/19 History Patient hx anesthesia problems: post op nausea/vomiting Family hx anesthesia problems: none PMFSH Past Medical History Medical History (Updated 09/17/19 @ 08:11 by Francisco Roberto DO) Burst fracture of lumbar vertebra with routine healing Diverticulosis DVT (deep venous thrombosis) GERD (gastroesophageal reflux disease) HTN (hypertension) Hx of breast cancer Chemo/RTX Ischemic colitis Low bone mass Pulmonary embolism Pure hypercholesterolemia Vitamin D deficiency Surgical History Surgical History H/O bilateral cataract extraction H/O colonoscopy 2012 H/O left breast biopsy H/O right mastectomy H/O shoulder surgery Social History Social History Smoking status: Never smoker Second hand tobacco smoke exposure: No Alcohol intake: never Substance use: never Gender identity (if verbalized by the patient): Female Spiritual care concerns: No Agree to blood products: Yes Anes - Eval Final PreProcedure Day of Procedure 10/01/19 10:26 Patient weight: normal Heart: regular rate and rhythm Lungs: clear to auscultation Airway: Mallampati scale class III Neurological: alert and oriented Last oral intake: >/= 8 hours ASA classification: III Emergent: no Anesthetic plan: proceed Anesthesia type and monitoring: general GIVS and standard monitoring Informed Consent: The patient's anesthetic plan and its attendant risks and benefits were discussed with the patient/family/POA. Questions were solicited and answers provided to the satisfaction of the patient/family/POA.
--- NOTE | 2019-10-01 11:33 | WPDHPUPDATE1 ---
History and Physical Update Update Date/Time: 10/01/19 11:33 History and Physical has been reviewed, including an updated exam of the patient. There are NO changes in the patient's condition. Risks, benefits, and alternatives have been discussed and questions answered. Patient agrees to proceed with procedure.
[2019-10-01 12:07] VITALS: BP 121/72; PULSE 63; RESP 26; O2SAT 97
[2019-10-01 12:17] VITALS: BP 132/74; PULSE 64; RESP 17; O2SAT 98
[2019-10-01 12:27] VITALS: BP 139/87; PULSE 60; RESP 19; O2SAT 100
[2019-10-01] MEDS: PROPARACAINE HCL 0.5% 15 ML OPHTH SOLN 1 DROP EACH EYE (12:48)
[2019-10-01] MEDS: DICLOFENAC SODIUM 0.1% OPHTH SOLN 2.5 ML BOTTLE 1 DROP EACH EYE (12:49)
== END 2019-10-01 13:01 | disposition home or self-care (01) ==
PROVIDERS: PCP Internal Medicine; Visit Provider Internal Medicine Gastroenterology
PROC: 0DJ08ZZ Inspection of Upper Intestinal Tract, Via Natural or Artificial Opening Endoscopic (ICD-10-PCS; CPT 43235; principal; 2019-10-01 10:30)
DX: Z09 Encounter for follow-up examination after completed treatment for conditions other than malignant neoplasm (principal); K57.30 Diverticulosis of large intestine without perforation or abscess without bleeding; K64.8 Other hemorrhoids; Z87.19 Personal history of other diseases of the digestive system; K22.2 Esophageal obstruction; K22.70 Barrett's esophagus without dysplasia; K44.9 Diaphragmatic hernia without obstruction or gangrene; K21.9 Gastro-esophageal reflux disease without esophagitis; I10 Essential (primary) hypertension; E78.00 Pure hypercholesterolemia, unspecified; E55.9 Vitamin D deficiency, unspecified; Z86.711 Personal history of pulmonary embolism; Z86.718 Personal history of other venous thrombosis and embolism; Z85.3 Personal history of malignant neoplasm of breast; Z92.21 Personal history of antineoplastic chemotherapy; Z92.3 Personal history of irradiation
CPT/HCPCS: 45378; 43249; A9270; C1726; J7120

== ENCOUNTER 2019-10-27 00:17 | Outpatient (CLI) | payer MEDICARE, SELFPAY ==
[2019-10-27 19:45] LABS: SARS-CoV-2 RNA PCR Negative
== END 2019-10-27 00:18 | disposition home or self-care (01) ==
LOC: ANHCOVIDDT 00:17
PROVIDERS: PCP Internal Medicine; Visit Provider Internal Medicine Gastroenterology
DX: Z01.812 Encounter for preprocedural laboratory examination (principal); Z11.59 Encounter for screening for other viral diseases
CPT/HCPCS: 87635; C9803; U0003

== ENCOUNTER 2019-10-29 01:36 | Day surgery (SDC) | payer MEDICARE, SELFPAY ==
[2019-09-28 13:54] VITALS: BMI 28.0
[2019-10-29 06:23] VITALS: BP 145/83; PULSE 79; RESP 16; TEMP 36.4; O2SAT 98
[2019-10-29] MEDS: LACTATED RINGERS 1,000 ML 150 ML IV CONT (06:31)
--- NOTE | 2019-10-29 06:59 | WPDANESEPPF ---
Anes - Initial Pre Proc Eval Procedure: Operation Date: 10/29/19 07:30 Proposed Procedures p Esophagogastroduodenoscopy - Francisco Roberto DO Date/Time: 10/29/19 06:59 Surgeon: Francisco Roberto DO Pre Op Diagnosis: Esophageal Stricture Patient Data Age: 74 Gender: F Height: 1.6 m Weight: 73.3 kg Last Vital Signs Temp 36.4 C L 10/29/19 06:23 Pulse 79 10/29/19 06:23 Resp 16 10/29/19 06:23 BP 145/83 H 10/29/19 06:23 Pulse Ox 98 10/29/19 06:23 Allergies Allergy/AdvReac Type Severity Reaction Status Date / Time tamoxifen Allergy Severe rash, Verified 10/29/19 06:19 blood clots Home Medications Medication Instructions Recorded Confirmed Type cholecalciferol (vitamin D3) 1,250 50,000 unit PO DIRECTED tablet 06/17/19 10/29/19 History mcg (50,000 unit) tablet pantoprazole 40 mg PO BID 09/16/19 10/29/19 History Patient hx anesthesia problems: none Family hx anesthesia problems: none PMFSH Past Medical History Medical History (Updated 09/17/19 @ 08:11 by Francisco Roberto DO) Burst fracture of lumbar vertebra with routine healing Diverticulosis DVT (deep venous thrombosis) GERD (gastroesophageal reflux disease) HTN (hypertension) Hx of breast cancer Chemo/RTX Ischemic colitis Low bone mass Pulmonary embolism Pure hypercholesterolemia Vitamin D deficiency Surgical History Surgical History H/O bilateral cataract extraction H/O colonoscopy 2012 H/O left breast biopsy H/O right mastectomy H/O shoulder surgery Social History Social History Smoking status: Never smoker Second hand tobacco smoke exposure: No Alcohol intake: never Substance use: never Gender identity (if verbalized by the patient): Female Spiritual care concerns: No Agree to blood products: Yes Anes - Eval Final PreProcedure Day of Procedure 10/29/19 06:59 Patient weight: overweight Heart: regular rate and rhythm Lungs: clear to auscultation and normal air movement Airway: Mallampati scale class II Neurological: alert and oriented Last oral intake: >/= 8 hours ASA classification: III Emergent: no Anesthetic plan: proceed Anesthesia type and monitoring: general GIVS Informed Consent: The patient's anesthetic plan and its attendant risks and benefits were discussed with the patient/family/POA. Questions were solicited and answers provided to the satisfaction of the patient/family/POA.
--- NOTE | 2019-10-29 07:40 | PM.IMHP ---
H&P: HPI History of Present Illness Chief complaint: Esophageal Stricture Narrative: This very pleasant lady's here for EGD. For pleasant lady seen in consultation request of the primary. 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 She is here for further dilation. Diverticulosis coli. Per past medical history. Recommendation: EGD. History: This very pleasant lady's well known to myself. She has a history of esophageal stricture, Godoy's esophagus and reflux. She is here for further dilation. The patient is presently improved from her previous endoscopy. Physical examination: General: very pleasant patient in no acute distress. HEENT: Head was normocephalic sclerae is clear mouth without masses neck was supple. Heart: Rate rhythm regular without S3 or S4. Lungs: CTA. Abdomen: Soft with no guarding or rigidity. Bowel sounds were active. Neurologic: Cranial nerves 2 through 12 intact. No focal defects. No clonus. Musculoskeletal system: Revealed no joint tenderness or swelling no muscle atrophy. Extremities: Reveal no significant edema. Skin: Warm and dry with normal turgor. Mental status: intact. Patient is alert and oriented. Review of Systems Review of Systems: All systems reviewed & are unremarkable except as noted in HPI and below PMFSH Past Medical History Medical History (Updated 09/17/19 @ 08:11 by Francisco Roberto DO) Burst fracture of lumbar vertebra with routine healing Diverticulosis DVT (deep venous thrombosis) GERD (gastroesophageal reflux disease) HTN (hypertension) Hx of breast cancer Chemo/RTX Ischemic colitis Low bone mass Pulmonary embolism Pure hypercholesterolemia Vitamin D deficiency Surgical History Surgical History H/O bilateral cataract extraction H/O colonoscopy 2012 H/O left breast biopsy H/O right mastectomy H/O shoulder surgery Social History Social History Smoking status: Never smoker Second hand tobacco smoke exposure: No Alcohol intake: never Substance use: never Gender identity (if verbalized by the patient): Female Spiritual care concerns: No Agree to blood products: Yes Meds Home Medications and Allergies Home Medications Medication Instructions Recorded Confirmed Type cholecalciferol (vitamin D3) 1,250 50,000 unit PO DIRECTED tablet 06/17/19 10/29/19 History mcg (50,000 unit) tablet pantoprazole 40 mg PO BID 09/16/19 10/29/19 History Allergies Allergy/AdvReac Type Severity Reaction Status Date / Time tamoxifen Allergy Severe rash, Verified 10/29/19 06:19 blood clots Vital Signs Vital Signs - 24 hr 10/29/19 06:23 Temperature 36.4 C L Pulse Rate 79 Respiratory Rate 16 Blood Pressure 145/83 H Pulse Oximetry 98
[2019-10-29] MEDS: BENZOCAINE (*SP) 60 ML SPRAY CAN (HURRICAINE) 1 SPRAY MUCOUS MEM (07:47)
[2019-10-29 07:59] VITALS: BP 123/70; PULSE 73; RESP 18; O2SAT 95
[2019-10-29 08:09] VITALS: BP 128/75; PULSE 72; RESP 18; O2SAT 96
[2019-10-29 08:19] VITALS: BP 125/75; PULSE 69; RESP 18; O2SAT 98
== END 2019-10-29 08:36 | disposition home or self-care (01) ==
PROVIDERS: PCP Internal Medicine; Visit Provider Internal Medicine Gastroenterology
PROC: 0DJ08ZZ Inspection of Upper Intestinal Tract, Via Natural or Artificial Opening Endoscopic (ICD-10-PCS; CPT 43235; principal; 2019-10-29 07:30)
DX: K22.2 Esophageal obstruction (principal); K21.9 Gastro-esophageal reflux disease without esophagitis; K44.9 Diaphragmatic hernia without obstruction or gangrene; K22.70 Barrett's esophagus without dysplasia; I10 Essential (primary) hypertension; E78.00 Pure hypercholesterolemia, unspecified; E55.9 Vitamin D deficiency, unspecified; Z86.711 Personal history of pulmonary embolism; Z86.718 Personal history of other venous thrombosis and embolism; Z85.3 Personal history of malignant neoplasm of breast; Z79.810 Long term (current) use of selective estrogen receptor modulators (SERMs); Z92.21 Personal history of antineoplastic chemotherapy; Z92.3 Personal history of irradiation
CPT/HCPCS: 43249; C1726; J2704; J7120

== ENCOUNTER 2019-11-24 01:33 | Outpatient (CLI) | payer MEDICARE, SELFPAY ==
[2019-11-24 17:56] LABS: SARS-CoV-2 RNA PCR Negative
== END 2019-11-24 01:34 | disposition home or self-care (01) ==
LOC: ANHCOVIDDT 01:33
PROVIDERS: PCP Internal Medicine; Visit Provider Internal Medicine Gastroenterology
DX: Z01.812 Encounter for preprocedural laboratory examination (principal); Z11.59 Encounter for screening for other viral diseases
CPT/HCPCS: 87635; C9803; U0003

== ENCOUNTER 2019-11-26 02:39 | Day surgery (SDC) | payer MEDICARE, SELFPAY ==
[2019-11-17 11:39] VITALS: BMI 27.3
--- NOTE | 2019-11-26 11:00 | WPDANESEPPF ---
Anes - Initial Pre Proc Eval Procedure: Operation Date: 11/26/19 12:00 Proposed Procedures p Esophagogastroduodenoscopy - Francisco Roberto DO Date/Time: 11/26/19 11:00 Surgeon: Francisco Roberto DO Pre Op Diagnosis: esophageal stricture Patient Data Age: 74 Gender: F Height: 5 ft 3 in Weight: 70 kg Allergies Allergy/AdvReac Type Severity Reaction Status Date / Time tamoxifen Allergy Severe rash, Verified 11/26/19 11:27 blood clots Home Medications Medication Instructions Recorded Confirmed Type cholecalciferol (vitamin D3) 1,250 50,000 unit PO DIRECTED tablet 06/17/19 11/17/19 History mcg (50,000 unit) tablet pantoprazole 40 mg PO BID 09/16/19 11/17/19 History Patient hx anesthesia problems: none Family hx anesthesia problems: none PMFSH Past Medical History Medical History (Updated 09/17/19 @ 08:11 by Francisco Roberto DO) Burst fracture of lumbar vertebra with routine healing Diverticulosis DVT (deep venous thrombosis) GERD (gastroesophageal reflux disease) HTN (hypertension) Hx of breast cancer Chemo/RTX Ischemic colitis Low bone mass Pulmonary embolism Pure hypercholesterolemia Vitamin D deficiency Surgical History Surgical History H/O bilateral cataract extraction H/O colonoscopy 2012 H/O left breast biopsy H/O right mastectomy H/O shoulder surgery Social History Social History Smoking status: Never smoker Second hand tobacco smoke exposure: No Alcohol intake: never Substance use: never Gender identity (if verbalized by the patient): Female Spiritual care concerns: No Agree to blood products: Yes Anes - Eval Final PreProcedure Day of Procedure 11/26/19 11:00 Patient weight: normal Heart: regular rate and rhythm Lungs: clear to auscultation Airway: Mallampati scale class III Neurological: alert and oriented Last oral intake: >/= 8 hours ASA classification: III Emergent: no Anesthetic plan: proceed Anesthesia type and monitoring: general GIVS and standard monitoring Informed Consent: The patient's anesthetic plan and its attendant risks and benefits were discussed with the patient/family/POA. Questions were solicited and answers provided to the satisfaction of the patient/family/POA.
[2019-11-26] MEDS: LACTATED RINGERS 1,000 ML 150 ML IV CONT (11:26)
[2019-11-26 11:28] VITALS: BP 149/90; PULSE 82; RESP 18; TEMP 37.1; O2SAT 95; BMI 28.8
--- NOTE | 2019-11-26 12:51 | P.HP_ITS ---
H&P: HPI History of Present Illness Chief complaint: esophageal stricture Narrative: Reason for visit EGD. This very pleasant lady's being evaluated at the request of the primary physician. The patient examined. Impression: GERD with esophageal stricture. For past medical history. Recommendation: EGD. History: This very pleasant lady's being evaluated for history of esophageal stricture. She has undergone periodic dilation. She is here for follow-up endoscopy to assess the need for further dilation. She is presently doing much better with respect to her dysphagia. Physical examination: General: very pleasant patient in no acute distress. HEENT: Head was normocephalic sclerae is clear mouth without masses neck was supple. Heart: Rate rhythm regular without S3 or S4. Lungs: CTA. Abdomen: Soft with no guarding or rigidity. Bowel sounds were active. Neurologic: Cranial nerves 2 through 12 intact. No focal defects. No clonus. Musculoskeletal system: Revealed no joint tenderness or swelling no muscle atrophy. Extremities: Reveal no significant edema. Skin: Warm and dry with normal turgor. Mental status: intact. Patient is alert and oriented. Review of Systems Review of Systems: All systems reviewed & are unremarkable except as noted in HPI and below [facility] Past Medical History Medical History (Updated 09/17/19 @ 08:11 by Francisco Roberto DO) Burst fracture of lumbar vertebra with routine healing Diverticulosis DVT (deep venous thrombosis) GERD (gastroesophageal reflux disease) HTN (hypertension) Hx of breast cancer Chemo/RTX Ischemic colitis Low bone mass Pulmonary embolism Pure hypercholesterolemia Vitamin D deficiency Surgical History Surgical History H/O bilateral cataract extraction H/O colonoscopy 2012 H/O left breast biopsy H/O right mastectomy H/O shoulder surgery Social History Social History Smoking status: Never smoker Second hand tobacco smoke exposure: No Alcohol intake: never Substance use: never Gender identity (if verbalized by the patient): Female Spiritual care concerns: No Agree to blood products: Yes Meds Home Medications and Allergies Home Medications Medication Instructions Recorded Confirmed Type cholecalciferol (vitamin D3) 1,250 50,000 unit PO DIRECTED tablet 06/17/19 11/17/19 History mcg (50,000 unit) tablet pantoprazole 40 mg PO BID 09/16/19 11/17/19 History Allergies Allergy/AdvReac Type Severity Reaction Status Date / Time tamoxifen Allergy Severe rash, Verified 11/26/19 11:27 blood clots Vital Signs Vital Signs - 24 hr 11/26/19 11:28 Temperature 37.1 C Pulse Rate 82 Respiratory Rate 18 Blood Pressure 149/90 H Pulse Oximetry 95
[2019-11-26 13:06] VITALS: BP 130/74; PULSE 75; RESP 18; O2SAT 99
[2019-11-26 13:16] VITALS: BP 124/78; PULSE 67; RESP 18; O2SAT 98
[2019-11-26 13:26] VITALS: BP 140/82; PULSE 68; RESP 25; O2SAT 99
== END 2019-11-26 13:36 | disposition home or self-care (01) ==
PROVIDERS: PCP Internal Medicine; Visit Provider Internal Medicine Gastroenterology
PROC: 0DJ08ZZ Inspection of Upper Intestinal Tract, Via Natural or Artificial Opening Endoscopic (ICD-10-PCS; CPT 43235; principal; 2019-11-26 12:00)
DX: K22.2 Esophageal obstruction (principal); K22.70 Barrett's esophagus without dysplasia; K44.9 Diaphragmatic hernia without obstruction or gangrene; K21.9 Gastro-esophageal reflux disease without esophagitis; E55.9 Vitamin D deficiency, unspecified; Z85.3 Personal history of malignant neoplasm of breast; Z92.21 Personal history of antineoplastic chemotherapy; Z92.3 Personal history of irradiation; Z86.711 Personal history of pulmonary embolism
CPT/HCPCS: 43249; C1726; J2704; J7120

== ENCOUNTER 2020-03-01 01:22 | Outpatient (CLI) | payer MEDICARE, SELFPAY ==
[2020-03-01 20:52] LABS: SARS-CoV-2 RNA PCR Negative
== END 2020-03-01 01:23 | disposition home or self-care (01) ==
LOC: ANHCOVIDDT 01:22
PROVIDERS: PCP Internal Medicine; Visit Provider Internal Medicine Gastroenterology
DX: Z01.812 Encounter for preprocedural laboratory examination (principal); Z20.828 Contact with and (suspected) exposure to other viral communicable diseases
CPT/HCPCS: 87635; C9803; U0003

== ENCOUNTER 2020-03-03 01:17 | Day surgery (SDC) | payer MEDICARE, SELFPAY ==
[2020-02-26 13:53] VITALS: BMI 28.5
--- NOTE | 2020-03-02 12:26 | WPDANESEPPF ---
Anes - Initial Pre Proc Eval Procedure: Operation Date: 03/03/20 07:30 Proposed Procedures p Esophagogastroduodenoscopy - Francisco Roberto DO Date/Time: 03/02/20 12:26 Surgeon: Francisco Roberto DO Pre Op Diagnosis: Esophageal Stricture Patient Data Age: 74 Gender: F Height: 1.6 m Weight: 73 kg Allergies Allergy/AdvReac Type Severity Reaction Status Date / Time tamoxifen Allergy Severe rash, Verified 03/03/20 06:11 blood clots Home Medications Medication Instructions Recorded Confirmed Type cholecalciferol (vitamin D3) 1,250 50,000 unit PO DIRECTED tablet 06/17/19 03/03/20 History mcg (50,000 unit) tablet pantoprazole 40 mg tablet,delayed 40 mg PO BID #180 tablet 01/01/20 03/03/20 Rx release Patient hx anesthesia problems: none Family hx anesthesia problems: none PMF[facility] Past Medical History Medical History (Updated 01/01/20 @ 09:03 by Ángel Francis DO) Godoy's esophagus Burst fracture of lumbar vertebra with routine healing Diverticulosis DVT (deep venous thrombosis) Esophageal stricture GERD (gastroesophageal reflux disease) HTN (hypertension) Hx of breast cancer Chemo/RTX Ischemic colitis Low bone mass Pulmonary embolism Pure hypercholesterolemia Vitamin D deficiency Surgical History Surgical History H/O bilateral cataract extraction H/O colonoscopy 2012 H/O left breast biopsy H/O right mastectomy H/O shoulder surgery Family History Family History Mother Hypertension, Onset Age: 89 Fibromyalgia Father Acute myocardial infarction, Onset Age: 85 Patient's father is Other Family history of arthritis Family history of congenital heart disease Family history of malignant neoplasm Social History Social History (Updated 01/01/20 @ 08:48 by Jarod Bustos CMA) Smoking status: Never smoker Second hand tobacco smoke exposure: No Alcohol intake: never Substance use: never Substance use type: does not use Living arrangements: alone Gender identity (if verbalized by the patient): Female Sexual Orientation (if Verbalized by the Patient): Straight or Heterosexual Spiritual care concerns: No Agree to blood products: Yes Anes - Eval Final PreProcedure Day of Procedure 03/02/20 12:26 Patient weight: overweight Heart: regular rate and rhythm Lungs: clear to auscultation and normal air movement Airway: Mallampati scale class II Neurological: alert and oriented Last oral intake: >/= 8 hours ASA classification: III Emergent: no Anesthetic plan: proceed Anesthesia type and monitoring: general GIVS Informed Consent: The patient's anesthetic plan and its attendant risks and benefits were discussed with the patient/family/POA. Questions were solicited and answers provided to the satisfaction of the patient/family/POA.
[2020-03-03 06:13] VITALS: BP 152/84; PULSE 76; RESP 17; TEMP 36.7; O2SAT 97; BMI 29.8
[2020-03-03] MEDS: LACTATED RINGERS 1,000 ML 150 ML IV CONT (06:30)
--- NOTE | 2020-03-03 07:16 | PM.IMHP ---
H&P: HPI History of Present Illness Date/Time: 03/03/20 07:16 Chief complaint: Esophageal Stricture Narrative: Reason for visit is EGD. This very pleasant lady seen in consultation request of the primary physician. Impression: GERD with history of esophageal stricture. The patient is here to assess need for further dilation History of ischemic colitis. Diverticulosis coli. For past medical history. Recommendation: EGD. History: Very pleasant lady's being evaluated for a history of esophageal stricture and reflux disease. She has undergone serial dilation in the past. Patient presently is swallowing much better. No nausea, vomiting or hematemesis. Her GI review of systems essentially unremarkable. She is here for follow-up endoscopy to assess the need for further dilation. Physical examination: General: very pleasant patient in no acute distress. HEENT: Head was normocephalic sclerae is clear mouth without masses neck was supple. Heart: Rate rhythm regular without S3 or S4. Lungs: CTA. Abdomen: Soft with no guarding or rigidity. Bowel sounds were active. Neurologic: Cranial nerves 2 through 12 intact. No focal defects. No clonus. Musculoskeletal system: Revealed no joint tenderness or swelling no muscle atrophy. Extremities: Reveal no significant edema. Skin: Warm and dry with normal turgor. Mental status: intact. Patient is alert and oriented. Review of Systems Review of Systems: All systems reviewed & are unremarkable except as noted in HPI and below [facility] Past Medical History Medical History (Updated 01/01/20 @ 09:03 by Ángel Francis DO) Godoy's esophagus Burst fracture of lumbar vertebra with routine healing Diverticulosis DVT (deep venous thrombosis) Esophageal stricture GERD (gastroesophageal reflux disease) HTN (hypertension) Hx of breast cancer Chemo/RTX Ischemic colitis Low bone mass Pulmonary embolism Pure hypercholesterolemia Vitamin D deficiency Surgical History Surgical History H/O bilateral cataract extraction H/O colonoscopy 2012 H/O left breast biopsy H/O right mastectomy H/O shoulder surgery Family History Family History Mother Hypertension, Onset Age: 89 Fibromyalgia Father Acute myocardial infarction, Onset Age: 85 Patient's father is Other Family history of arthritis Family history of congenital heart disease Family history of malignant neoplasm Social History Social History (Updated 01/01/20 @ 08:48 by Jarod Bustos [facility]) Smoking status: Never smoker Second hand tobacco smoke exposure: No Alcohol intake: never Substance use: never Substance use type: does not use Living arrangements: alone Gender identity (if verbalized by the patient): Female Sexual Orientation (if Verbalized by the Patient): Straight or Heterosexual Spiritual care concerns: No Agree to blood products: Yes Meds Home Medications and Allergies Home Medications Medication Instructions Recorded Confirmed Type cholecalciferol (vitamin D3) 1,250 50,000 unit PO DIRECTED tablet 06/17/19 03/03/20 History mcg (50,000 unit) tablet pantoprazole 40 mg tablet,delayed 40 mg PO BID #180 tablet 01/01/20 03/03/20 Rx release Allergies Allergy/AdvReac Type Severity Reaction Status Date / Time tamoxifen Allergy Severe rash, Verified 03/03/20 06:11 blood clots Vital Signs Vital Signs - 24 hr 03/03/20 06:13 Temperature 36.7 C Pulse Rate 76 Respiratory Rate 17 Blood Pressure 152/84 H Pulse Oximetry 97
[2020-03-03 07:44] VITALS: BP 127/80; PULSE 75; RESP 21; O2SAT 95
[2020-03-03 07:54] VITALS: BP 132/80; PULSE 69; RESP 19; O2SAT 96
[2020-03-03 08:04] VITALS: BP 138/84; PULSE 73; RESP 18; O2SAT 94
== END 2020-03-03 08:19 | disposition home or self-care (01) ==
PROVIDERS: PCP Internal Medicine; Visit Provider Internal Medicine Gastroenterology
PROC: 0DJ08ZZ Inspection of Upper Intestinal Tract, Via Natural or Artificial Opening Endoscopic (ICD-10-PCS; CPT 43235; principal; 2020-03-03 07:30)
DX: K22.70 Barrett's esophagus without dysplasia (principal); K44.9 Diaphragmatic hernia without obstruction or gangrene; K21.9 Gastro-esophageal reflux disease without esophagitis; K22.2 Esophageal obstruction; I10 Essential (primary) hypertension; E78.00 Pure hypercholesterolemia, unspecified; E55.9 Vitamin D deficiency, unspecified; Z85.3 Personal history of malignant neoplasm of breast; Z86.711 Personal history of pulmonary embolism; Z86.718 Personal history of other venous thrombosis and embolism; Z92.21 Personal history of antineoplastic chemotherapy; Z92.3 Personal history of irradiation
CPT/HCPCS: 43235; J2704; J7120

== ENCOUNTER 2020-09-22 15:33 | Emergency (ER) | payer MEDICARE, SELFPAY ==
--- NOTE | ~2020-09-22 | XR_ITS ---
XR knee LT 3V 09/22/2020 17:05 Indication: Left knee pain Procedure: 3 views left knee Comparison: No prior studies for comparison. Findings: There is mild osteoarthritis of the left knee. No fracture, subluxation or dislocation. Sma ll joint effusion. No soft tissue abnormality. No foreign bodies. Impression: 1: No acute fracture. 2: Small joint effusion. Reviewed, dictated and finalized at location A. Impression: 1: No acute fracture. 2: Small joint effusion.
--- NOTE | ~2020-09-22 | CT_ITS ---
EXAMINATION: CT cervical spine wo con DATE: 09/22/2020 16:53 INDICATION: Neck pain status post fall TECHNIQUE: Computed tomography (CT) of the cervical spine was performed without intravenous contrast. The dose-length product was 194 mGy-cm. Automated exposure control and iterative reconstruction tech nique were employed. COMPARISON: None FINDINGS: Vertebral body heights are maintained. There is mild multilevel uncinate hypertrophy. Mild levocurvature of the cervical spine. Odontoid process within normal limits. Craniovertebral junction is unremarkable. No evidence for perched facet. There is apical pleural thickening/scarring with pleu ral calcifications, likely from previous asbestos exposure. No significant paraspinal soft tissue abn ormality. IMPRESSION: 1. No acute fracture. Reviewed, dictated and finalized at location A. IMPRESSION: 1. No acute fracture.
--- NOTE | ~2020-09-22 | XR_ITS ---
XR elbow RT min 3V 09/22/2020 17:04 Indication: Right elbow pain after fall Procedure: 4 views right elbow Comparison: 02/17/2018 Findings: There is a possible nondisplaced radial head fracture. There is joint effusion with displac ement of the ventral and posterior fat pads. No other fracture. 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 Impression: 1: Possible nondisplaced radial head fracture with joint effusion. Recommend conservative therapy wit h follow-up x-rays in 7-to 10 days as clinically warranted. Reviewed, dictated and finalized at location A. Impression: 1: Possible nondisplaced radial head fracture with joint effusion. Recommend co nservative therapy with follow-up x-rays in 7-to 10 days as clinically warrante alexus
--- NOTE | ~2020-09-22 | CT_ITS ---
EXAMINATION: CT brain wo con DATE: 09/22/2020 16:53 INDICATION: Neck pain. Fall. TECHNIQUE: Computed tomography (CT) of the head was performed without intravenous contrast. The mA wa s adjusted according to patient size. Iterative reconstruction technique was employed. The dose-lengt h product was 605.33 mGy-cm. COMPARISON: None FINDINGS: There is a 3.7 x 1.7 cm arachnoid cyst anterior to right temporal lobe. There is a [address] in the right frontal lobe deep white matter. There is no intracranial hemorrhage, acute infarction , or abnormal intracranial mass lesion. The ventricles are normal in size. There is left frontal scal p soft tissue swelling. There is mild mucosal thickening in the paranasal sinuses. The mastoid air ce lls are normal. There are likely changes of ocular lens replacement surgeries. IMPRESSION: 1. Cyst in the right frontal lobe deep white matter, which may be a prominent perivascular space 2. Arachnoid cyst anterior to right temporal lobe. Reviewed, dictated and finalized at location B. IMPRESSION: 1. Cyst in the right frontal lobe deep white matter, which may be a prominent p erivascular space 2. Arachnoid cyst anterior to right temporal lobe.
[2020-09-22 15:34] VITALS: BP 149/97; PULSE 106; RESP 18; TEMP 37.2; O2SAT 95
--- NOTE | 2020-09-22 18:33 | ED.LOWEXIN ---
HPI - Extremity Injury (Lower) General Chief Complaint: Extremity Injury, Lower Stated Complaint: fall - knee pain Time Seen by Provider: 09/22/20 16:01 Source: patient Mode of arrival: wheelchair Limitations: no limitations History of Present Illness HPI Narrative: Patient is a 75 year old female who presents reporting left knee and right elbow pain. Patient reports trip and fall this am falling on concrete. She reports hitting head, no LOC. Bruising and abrasion noted. Patient has mild edema and abrasion to left knee. Bruising and edema noted to right elbow. Patient has full range of motion. She denies other complaints at this time. She denies taking OTC meds prior to arrival. Related Data Home Medications Medication Instructions Recorded Confirmed cholecalciferol (vitamin D3) 1,250 50,000 unit PO DIRECTED tablet 06/17/19 07/01/20 mcg (50,000 unit) tablet peg 400-propylene glycol (PF) 0.4 1 drp EACH EYE DAILY PRN 07/01/20 07/01/20 %-0.3 % eye drops in a dropperette Allergies Allergy/AdvReac Type Severity Reaction Status Date / Time tamoxifen Allergy Severe rash, Verified 09/22/20 15:44 blood clots Review of Systems Review of Systems: Narrative: CONSTITUTIONAL: Denies fever, chills, or sweats. EYES: Denies visual changes, redness, or discharge. ENT: Denies rhinorrhea, congestion, sore throat, or otalgia. CARDIOVASCULAR: Denies chest pain, palpitations, or edema. RESPIRATORY: Denies cough or dyspnea. GASTROINTESTINAL: Denies abdominal pain, nausea, vomiting, or diarrhea. GENITOURINARY: Denies dysuria or hematuria. SKIN: Denies rash or itching. MUSCULOSKELETAL: Reports right elbow and left knee pain NEUROLOGIC: Denies headache, numbness, dizziness, or weakness. PSYCHIATRIC: Denies anxiety or depression. [facility] Past Medical History Medical History Godoy's esophagus Burst fracture of lumbar vertebra with routine healing Diverticulosis DVT (deep venous thrombosis) Esophageal stricture GERD (gastroesophageal reflux disease) HTN (hypertension) Hx of breast cancer Chemo/RTX Ischemic colitis Low bone mass Pulmonary embolism Pure hypercholesterolemia Vitamin D deficiency Surgical History Surgical History H/O bilateral cataract extraction H/O colonoscopy 2012 H/O left breast biopsy H/O right mastectomy H/O shoulder surgery Family History Family History Mother Hypertension, Onset Age: 89 Fibromyalgia Father Acute myocardial infarction, Onset Age: 85 Patient's father is Other Family history of arthritis Family history of congenital heart disease Family history of malignant neoplasm Social History Social History Smoking status: Never smoker Second hand tobacco smoke exposure: No Alcohol intake: never Substance use: never Substance use type: does not use Gender identity (if verbalized by the patient): Female Spiritual care concerns: No Agree to blood products: Yes Comments At the time of signature, I have reviewed and agree with nursing past medical, surgical, social, and family history unless otherwise noted. Please see nursing chart for further information. There is no relevant family history pertinent to the presenting complaint. Exam Narrative: Exam Narrative: GENERAL: Well-appearing, well-nourished, and in no acute distress. HEAD: Normocephalic, atraumatic. EYES: EOMI. No redness or drainage. Conjunctiva are normal. ENT: Mucous membranes pink and moist. CHEST: No respiratory distress. Clear to auscultation. HEART: Regular rate and rhythm. No murmur appreciated. Normal peripheral pulses. GI: Soft, nontender without rebound, or guarding. No distention. Bowel sounds normal in all quadrants. MUSCULOSKELET
[2020-09-22 19:53] VITALS: BP 140/62; PULSE 80; RESP 20; O2SAT 99
--- NOTE | 2020-09-22 19:53 | PC.NURSE ---
long arm splint applied to left arm
== END 2020-09-22 19:55 | disposition home or self-care (01) ==
PROVIDERS: Emergency Provider Nurse Practitioner; PCP Internal Medicine
DX: S52.124A Nondisplaced fracture of head of right radius, initial encounter for closed fracture (principal); S80.02XA Contusion of left knee, initial encounter; K22.70 Barrett's esophagus without dysplasia; E78.00 Pure hypercholesterolemia, unspecified; K21.9 Gastro-esophageal reflux disease without esophagitis; E55.9 Vitamin D deficiency, unspecified; Z86.718 Personal history of other venous thrombosis and embolism; Z85.3 Personal history of malignant neoplasm of breast; Z92.3 Personal history of irradiation; Z92.21 Personal history of antineoplastic chemotherapy; Z86.711 Personal history of pulmonary embolism; Z98.42 Cataract extraction status, left eye; Z98.41 Cataract extraction status, right eye; Z90.11 Acquired absence of right breast and nipple; G93.0 Cerebral cysts; W01.0XXA Fall on same level from slipping, tripping and stumbling without subsequent striking against object, initial encounter
CPT/HCPCS: 29105; 70450; 72125; 73080; 73562; 99284

== ENCOUNTER 2021-05-03 08:19 | Emergency (ER) | payer MEDICARE, SELFPAY ==
--- NOTE | ~2021-05-03 | XR_ITS ---
EXAMINATION: XR wrist LT min 3V DATE: 05/03/2021 08:42 INDICATION: Left wrist pain post fall 3 days prior TECHNIQUE: Posteroanterior, ulnar deviation, oblique, and lateral views of the left wrist were obtain ed. COMPARISON: none FINDINGS: Nondisplaced dorsally impacted fracture extending across the distal left radial metaphysis with poste rior angulation and buckling of the dorsal cortex. This results in 14 degree dorsal tilt of the dista l articular surface. No evident intra-articular extension. No other fractures identified. Normal alig nment in the visualized left hand. Mild osteoarthritis at the triscaphe, first and second carpometaca rpal and first metacarpophalangeal joints. Soft tissue swelling about the wrist. IMPRESSION: 1. Dorsally impacted extra-articular fracture of the distal left radial metaphysis. Reviewed, dictated and finalized at location B. [employer] DEVEL[employer] IMPRESSION: 1. Dorsally impacted extra-articular fracture of the distal left radial metaphy sis.
[2021-05-03 08:30] VITALS: BP 150/97; PULSE 82; RESP 16; TEMP 36.8; O2SAT 99
--- NOTE | 2021-05-03 08:41 | ED.UPPEXIN ---
HPI - Extremity Injury (Upper) General Chief Complaint: Extremity Injury, Upper Stated Complaint: LEFT ARM PAIN Time Seen by Provider: 05/03/21 08:41 Source: patient Mode of arrival: ambulatory Limitations: no limitations History of Present Illness HPI narrative: Lay Douglas is a 75-year-old female with a PMH of GERD, breast cancer on left with radical mastectomy, DVTs after tamoxifen, fracture of right humerus, who comes after a fall on some grumbles on the ground at her home on Saturday. Left wrist is swollen lightly bruised although she can move her fingers she states her hand feels weak Related Data Home Medications Medication Instructions Recorded Confirmed cholecalciferol (vitamin D3) 1,250 50,000 unit PO DIRECTED tablet 06/17/19 05/03/21 mcg (50,000 unit) tablet peg 400-propylene glycol (PF) 0.4 1 drp EACH EYE DAILY PRN 07/01/20 05/03/21 %-0.3 % eye drops in a dropperette Allergies Allergy/AdvReac Type Severity Reaction Status Date / Time tamoxifen Allergy Severe rash, Verified 05/03/21 08:44 blood clots Review of Systems Review of Systems: CONSTITUTIONAL: Denies fever, chills, sweats. EYES: Denies visual changes, redness, discharge. ENT: Denies rhinorrhea, congestion, sore throat, otalgia. CARDIOVASCULAR: Denies chest pain, palpitations, edema. RESPIRATORY: Denies dyspnea, wheezing, cough GASTROINTESTINAL: Denies abdominal pain, nausea, vomiting, diarrhea. GENITOURINARY: Denies dysuria, hematuria, abnormal discharge SKIN: Denies rash or itching. NEUROLOGIC: Denies numbness, or focal weakness. PSYCHIATRIC: Denies anxiety or depression. Left wrist pain and swelling after fall on Saturday [facility] Past Medical History Medical History Godoy's esophagus Burst fracture of lumbar vertebra with routine healing Diverticulosis DVT (deep venous thrombosis) Esophageal stricture GERD (gastroesophageal reflux disease) HTN (hypertension) Hx of breast cancer Chemo/RTX Ischemic colitis Low bone mass Pulmonary embolism Pure hypercholesterolemia Vitamin D deficiency Surgical History Surgical History H/O bilateral cataract extraction H/O colonoscopy 2012 H/O left breast biopsy H/O right mastectomy H/O shoulder surgery Family History Family History Mother Hypertension, Onset Age: 89 Fibromyalgia Father Acute myocardial infarction, Onset Age: 85 Patient's father is Other Family history of arthritis Family history of congenital heart disease Family history of malignant neoplasm Social History Social History Smoking status: Never smoker Second hand tobacco smoke exposure: No Alcohol intake: never Substance use: never Substance use type: does not use Gender identity (if verbalized by the patient): Female Sexual Orientation (if Verbalized by the Patient): Straight or Heterosexual Spiritual care concerns: No Agree to blood products: Yes Comments At time of signature, I agree with nursing past medical, surgical, social and family history. There is no relevant family history pertinent to the presenting complaint. Patient is known to have fluctuating blood pressure and is being treated on and off by physician; has been on medication in the past but was taken off by primary care physician Exam Narrative: GENERAL: This is a well-nourished, well-developed patient, in mild distress. HEAD: normocephalic, atraumatic. EYES: . Sclera clear/white. Vision is grossly intact. EARS: External ears normal. Hearing grossly intact. NOSE: External nose normal without nasal discharge, nares without redness, no rhinorrhea. THROAT: Mucous membranes moist, NECK: Neck supple, non-tender CARDIOVASCULAR: Regular rate and rhythm without murmurs, g
--- NOTE | 2021-05-03 09:34 | PC.NURSE ---
[id number]-- VENDING MACHINE ATTENDANT and tech on phone with Dr Torres office attempting to facilitate an appt for follow up care.
== END 2021-05-03 10:14 | disposition home or self-care (01) ==
PROVIDERS: Emergency Provider Nurse Practitioner; PCP Internal Medicine
DX: S52.552A Other extraarticular fracture of lower end of left radius, initial encounter for closed fracture (principal); W19.XXXA Unspecified fall, initial encounter; K21.9 Gastro-esophageal reflux disease without esophagitis; Z85.3 Personal history of malignant neoplasm of breast; Z90.12 Acquired absence of left breast and nipple; Z86.718 Personal history of other venous thrombosis and embolism; K22.70 Barrett's esophagus without dysplasia; E78.00 Pure hypercholesterolemia, unspecified; E55.9 Vitamin D deficiency, unspecified; Z98.49 Cataract extraction status, unspecified eye
CPT/HCPCS: 29125; 73110; 99214; G0463

== ENCOUNTER 2021-06-24 16:42 | Emergency (ER) | payer MEDICARE, SELFPAY ==
--- NOTE | ~2021-06-24 | XR_ITS ---
EXAMINATION: XR hip LT 2V w AP pelvis INDICATION: Left hip pain TECHNIQUE: AP view of the pelvis and two views of the left hip are obtained. COMPARISON: None available FINDINGS: There is moderate osteoarthritis of the hips. Bone alignment is normal. There is no fractur e. The soft tissues are unremarkable. IMPRESSION: 1. No acute osseous abnormality. Reviewed, dictated and finalized at location F. [employer] OPERATOR
[2021-06-24 16:44] VITALS: BP 147/87; PULSE 101; RESP 17; TEMP 36.5; O2SAT 100
--- NOTE | 2021-06-24 18:16 | ED.BACK ---
HPI - Back Pain/Injury General Chief Complaint: Back Pain/Injury Stated Complaint: left hip pain/ left calf pain Time Seen by Provider: 06/24/21 17:08 Source: patient History of Present Illness HPI Narrative: 75-year-old female presented [facility] for evaluation of left hip pain. Patient did have a fall in the beginning of April where she did fracture her left wrist. Patient states she was not having left hip pain at that time. Patient started developing left lateral hip pain approximately 2 days ago. Patient denies any specific incident of injury or strain. Patient has had no recent falls. Last night patient was in bed and she also had a short lasting charley horse in her left lower leg. Patient does have prior history of DVT but had to stop taking Coumadin due to a GI bleed. Patient denies any chest pain or shortness of breath. Patient denies any current lower extremity pain, tenderness. Related Data Home Medications Medication Instructions Recorded Confirmed cholecalciferol (vitamin D3) 1,250 50,000 unit PO DIRECTED tablet 06/17/19 06/05/21 mcg (50,000 unit) tablet peg 400-propylene glycol (PF) 0.4 1 drp EACH EYE DAILY PRN 07/01/20 06/05/21 %-0.3 % eye drops in a dropperette Allergies Allergy/AdvReac Type Severity Reaction Status Date / Time tamoxifen Allergy Severe rash, Verified 06/05/21 08:48 blood clots Review of Systems Review of Systems: CONSTITUTIONAL: Denies fever, chills, or sweats. EYES: Denies visual changes, redness, or discharge. ENT: Denies rhinorrhea, congestion, sore throat, or otalgia. CARDIOVASCULAR: Denies chest pain, palpitations, or edema. RESPIRATORY: Denies cough or dyspnea. GASTROINTESTINAL: Denies abdominal pain, nausea, vomiting, or diarrhea. GENITOURINARY: Denies dysuria or hematuria. SKIN: Denies rash or itching. MUSCULOSKELETAL: Left lateral hip pain. NEUROLOGIC: Denies headache, numbness, or weakness. All systems reviewed & are unremarkable except as noted in HPI and below PMFSH Past Medical History Medical History Godoy's esophagus Burst fracture of lumbar vertebra with routine healing Diverticulosis DVT (deep venous thrombosis) Esophageal stricture GERD (gastroesophageal reflux disease) HTN (hypertension) Hx of breast cancer Chemo/RTX Ischemic colitis Low bone mass Pulmonary embolism Pure hypercholesterolemia Vitamin D deficiency Surgical History Surgical History H/O bilateral cataract extraction H/O colonoscopy 2012 H/O left breast biopsy H/O right mastectomy H/O shoulder surgery Family History Family History Mother Hypertension, Onset Age: 89 Fibromyalgia Father Acute myocardial infarction, Onset Age: 85 Patient's father is Other Family history of arthritis Family history of congenital heart disease Family history of malignant neoplasm Social History Social History Smoking status: Never smoker Second hand tobacco smoke exposure: No Alcohol intake: never Substance use: never Substance use type: does not use Gender identity (if verbalized by the patient): Female Sexual Orientation (if Verbalized by the Patient): Straight or Heterosexual Spiritual care concerns: No Agree to blood products: Yes Exam Narrative: APPEARANCE: Well appearing, no pain, no distress, well-nourished. HEAD: normocephalic, atraumatic. EYES: PERRLA/EOMI, conjunctivae clear. NECK: Supple. No adenopathy, no masses. RESPIRATORY: Airway patent, respirations nonlabored. Clear to auscultation bilaterally, no rales, rhonchi, wheezing. CARDIOVASCULAR: Regular rate and rhythm without murmurs rubs or gallops. ABDOMINAL: Soft, nontender, nondistended, normal bowel sounds MUSCULOSK
[2021-06-24] MEDS: CYCLOBENZAPRINE HCL 10 MG TABLET PO (18:19)
== END 2021-06-24 18:32 | disposition home or self-care (01) ==
PROVIDERS: Emergency Provider Emergency Medicine; PCP Internal Medicine
DX: M25.552 Pain in left hip (principal); I10 Essential (primary) hypertension; E78.00 Pure hypercholesterolemia, unspecified; K22.70 Barrett's esophagus without dysplasia; K21.9 Gastro-esophageal reflux disease without esophagitis; E55.9 Vitamin D deficiency, unspecified; Z85.3 Personal history of malignant neoplasm of breast; Z92.3 Personal history of irradiation; Z92.21 Personal history of antineoplastic chemotherapy; Z86.718 Personal history of other venous thrombosis and embolism; Z98.42 Cataract extraction status, left eye; Z98.41 Cataract extraction status, right eye; Z90.11 Acquired absence of right breast and nipple
CPT/HCPCS: 73502; 99283; A9270

== ENCOUNTER → 2021-07-21 10:28 | Outpatient (CLI) | payer MEDICARE, SELFPAY ==
--- NOTE | ~2021-07-21 | XR_ITS ---
XR lumbar spine 2-3V DATE: 07/21/2021 11:14 INDICATION: Back pain TECHNIQUE: AP, lateral, coned lateral lumbosacral views COMPARISON: 01/18/2016 CT abdomen and pelvis FINDINGS: There is prominent diffuse osteopenia. There is degenerative spurring of the lower thoracic spine. There is severe burst fracture deformity at L1, present on 01/18/2016. There is new mild compression fracture deformity at the superior aspect of L4 since 01/18/2016. Lumbar and lumbosacral disc spaces appear relatively preserved. No spondylolisthesis. The lumbar pedi cles are intact. The sacroiliac joints appear normal. IMPRESSION: Prominent osteopenia Severe burst fracture deformity of L1, chronic, present on 01/18/2016 New mild compression fracture deformity of superior L4 since 01/18/2016 Reviewed, dictated and finalized at location A.
== END ==
PROVIDERS: PCP Internal Medicine; Visit Provider Internal Medicine
DX: M85.88 Other specified disorders of bone density and structure, other site (principal); S32.011A Stable burst fracture of first lumbar vertebra, initial encounter for closed fracture; X58.XXXA Exposure to other specified factors, initial encounter
CPT/HCPCS: 72100

== ENCOUNTER → 2021-09-07 07:03 | Outpatient (CLI) | payer MEDICARE, SELFPAY ==
--- NOTE | ~2021-09-07 | MR_ITS ---
EXAMINATION: MR lumbar spine wo con DATE: 09/07/2021 07:35 INDICATION: Lumbar radicular pain. TECHNIQUE: Magnetic resonance imaging (MRI) of the lumbar spine was performed without intravenous con trast. Sequences included sagittal T2-weighted FSE, sagittal T2-weighted FS FSE, sagittal T1-weighted FSE, and axial T2-weighted FSE. COMPARISON: Lumbar radiographs dated FINDINGS: Alignment is normal. Chronic burst fractures at L1 with 75% central vertebral body height loss and 6 mm retropulsion and at L4 with 30% central vertebral body height loss and 2 mm retropulsion. Acute to subacute L3 burst fracture, new since 07/21/2021 with one third central vertebral body height loss, 3 mm retropulsion and prominent marrow edema in the vertebral body with linear low signal intensity fr acture line underlying the depressed superior endplate. Mild marrow edema associated with a small Sharath morl's node at the superior endplate of L4. Mild disc height loss at T10-T11 and T11-T12. There is ba llooning of the central aspect of the disc spaces from T12-L1 through L3-L4 resulting from the burst fractures. Mild disc desiccation with relatively preserved disc heights at L4-L5 and L5-S1. The conus medullaris terminates at T12-L1. There is normal signal in the caudal spinal cord. Paravertebral sof t tissues are unremarkable. The following disc levels are specifically discussed: T12-L1: Disc is mildly bulging, most prominent at the bilateral foraminal zones. There is mild centra l canal stenosis at the level of the disc and greater degree of still mild stenosis approximately 7 m m caudal to the level of the superior endplate resulting from the L1 retropulsion. There is mild righ t and minimal left facet joint osteoarthritis. There is mild bilateral neural foraminal stenosis. L1-L2: Disc is bulging with superimposed right subarticular zone annular fissure and small disc extru odilon with disc material extending 6 mm caudal to the level of the superior endplate of L1 resulting i n mild narrowing of the right lateral recess. There is mild right and minimal left facet joint osteoa rthritis. There is mild left and moderate right neural foraminal stenosis. There is mild central lily l stenosis. L2-L3: Disc is mildly bulging, most prominent at the bilateral foraminal zones. There is no significa nt central canal stenosis at the level of the disc space but as at L1 there is mild central canal dina nosis just below level of the disc space resulting from the retropulsion at L3. There is mild bilater al facet joint osteoarthritis. There is mild bilateral neural foraminal stenosis. L3-L4: Disc is bulging. There is moderate bilateral facet joint osteoarthritis. There is moderate lef t and mild to moderate right neural foraminal stenosis. There is mild central canal stenosis. The lev el of the disc and slightly more caudally at the region of L4 retropulsion. L4-L5: Disc is bulging. There is moderate left and severe right facet joint osteoarthritis. There is mild to moderate bilateral neural foraminal stenosis. There is mild central canal stenosis. L5-S1: Disc is bulging. There is severe bilateral facet joint osteoarthritis. There is mild right and mild to moderate left neural foraminal stenosis. There is mild central canal stenosis. IMPRESSION: 1. Acute to subacute L3 burst fracture, new since 07/21/2021 with mild central vertebral body height l oss and mild retropulsion. 2. Chronic burst fractures at L1 and L4. 3. Lumbar spondylosis with mild disc disease and moderate to severe lower lumbar facet osteoarthritis . Reviewed, dictated and finalized at location A. IMPRESSION: 1. Acute to subacute L3 burst fracture, new since 07/21/2021 with mild central v ertebral body height loss and mild retro
== END ==
PROVIDERS: PCP Internal Medicine; Visit Provider Nurse Practitioner Family
DX: M47.26 Other spondylosis with radiculopathy, lumbar region (principal); S32.031A Stable burst fracture of third lumbar vertebra, initial encounter for closed fracture; S32.011A Stable burst fracture of first lumbar vertebra, initial encounter for closed fracture; S32.021A Stable burst fracture of second lumbar vertebra, initial encounter for closed fracture; S32.041A Stable burst fracture of fourth lumbar vertebra, initial encounter for closed fracture; X58.XXXA Exposure to other specified factors, initial encounter
CPT/HCPCS: 72148

== ENCOUNTER → 2022-03-16 10:16 | Outpatient (CLI) | payer MEDICARE, SELFPAY ==
--- NOTE | ~2022-03-16 | DEXA_ITS ---
Bone Density Report Name: NEVA REAVES Age: 76 Sex: Female Ethnicity: White Date of : 1945 Indication: osteopenia; parental hip fracture; height loss; prior fracture; postmenopausal Referring Provider: DIANNE CALVIN Study: Bone densitometry was performed. Exam Date: March 16, 2022 Accession number: [id number] Bone Density: Region BMD T-score Z-score Classification AP Spine (L1, L2) 0.818 -1.5 0.8 Osteopenia Femoral Neck (Left) 0.702 -1.3 0.8 Osteopenia Total Hip (Left) 0.808 -1.1 0.7 Osteopenia Femoral Neck (Right) 0.689 -1.4 0.7 Osteopenia Total Hip (Right) 0.734 -1.7 0.1 Osteopenia Total Hip Mean 0.771 -1.4 0.4 Osteopenia World Health Organization criteria for BMD impression classify patients as: Normal (T-score at or above -1.0), Osteopenia (T-score between -1.0 and -2.5), or Osteoporosis (T-score at or below -2.5). 10-year Fracture Risk: FRAX not reported because: Prior hip or vertebral fracture Previous Exams: Region Exam Age BMD T-score BMD Change BMD Change Date g/cm2 vs Baseline vs Previous AP Spine(L1, L2) 03/16/2022 76 0.818 -1.5 0.042* 0.025* 11/08/2006 61 0.793 -1.7 0.017 0.017 11/07/2005 60 0.776 -1.8 Total Hip(Left) 03/16/2022 76 0.808 -1.1 -0.048* -0.053* 11/08/2006 61 0.861 -0.7 0.005 0.005 11/07/2005 60 0.856 -0.7 Total Hip(Right) 03/16/2022 76 0.734 -1.7 -0.085* -0.108* 11/08/2006 61 0.841 -0.8 0.022 0.022 11/07/2005 60 0.819 -1.0 *Denotes significance at 95% confidence level, LSC for AP Spine = 0.022 g/cm2, LSC for Total Hip = 0.027 g/cm2 Clinical Information Provided by Patient: Have had a previous hip or vertebral fracture Has had a low trauma fracture Parent has had a hip fracture Has used the following medications: Vitamin D, MTV Patient maximum height was 64 Menopause Age: 56 No regular weight bearing exercise Does not regularly consume dairy products Drinks caffeinated beverages Onset of menses at age 14 Number of children 1 Missed period for more than 6 months in a row Impression: The patient has low bone mass, based on the Right Total Hip T-score. The patient has risk factors, including: parental hip fracture, previous fracture. The BMD for the Total Hip(Left) decreased, changing by -0.053 since the last DXA exam. The BMD for the Total Hip(Right) decreased, alfredo
== END ==
PROVIDERS: PCP Internal Medicine; Visit Provider Obstetrics & Gynecology Gynecology
DX: Z78.0 Asymptomatic menopausal state (principal); M85.88 Other specified disorders of bone density and structure, other site; M85.852 Other specified disorders of bone density and structure, left thigh; M85.851 Other specified disorders of bone density and structure, right thigh
CPT/HCPCS: 77080

== ENCOUNTER → 2022-11-01 15:09 | Outpatient (CLI) | payer MEDICARE, SELFPAY ==
--- NOTE | ~2022-11-01 | XR_ITS ---
Lumbosacral Spine: AP and lateral views, with neutral, flexion, and extension positioning Clinical History: Pain COMPARISON: 07/21/2021 Findings: Moderate to severe chronic compression fracture deformity of L1 is unchanged. There is vert ebroplasty cement at L3-L4, new from prior exam. No instability evident on flexion or extension views . Intervertebral disc spaces are well preserved. There is advanced facet arthropathy from L3 through S1. The sacroiliac joints are normally outlined. Impression: Vertebroplasty cement at L3-L4, new from prior exam. Stable chronic moderate to severe compression fracture of L1. Facet arthropathy the lower lumbar spine, as detailed above. Reviewed, dictated and finalized at location M. Impression: Vertebroplasty cement at L3-L4, new from prior exam. Stable chronic moderate to severe compression fracture of L1. Facet arthropathy the lower lumbar spine, as detailed above.
== END ==
PROVIDERS: PCP Nurse Practitioner Family; Visit Provider Nurse Practitioner Family
DX: S32.010A Wedge compression fracture of first lumbar vertebra, initial encounter for closed fracture (principal); X58.XXXA Exposure to other specified factors, initial encounter
CPT/HCPCS: 72110

== ENCOUNTER 2023-10-30 02:52 | Day surgery (SDC) | payer MEDICARE, SELFPAY ==
[2023-10-16 09:59] VITALS: BMI 29.4
[2023-10-30 08:57] VITALS: BP 163/89; PULSE 93; RESP 20; TEMP 36.3; O2SAT 98
--- NOTE | 2023-10-30 09:10 | PM.HPGS ---
History of Present Illness History of Present Illness Consent: Risks, benefits, and alternatives have been discussed and questions answered. Patient agrees to proceed with procedure. Chief complaint: Ibarra's esophagus w/o dysplasia Narrative: Lay Douglas is a 78 year old female here for egd, h/o ibarra's without dysplasia in 2019, on ppi daily, no new issues. Review of Systems Review of Systems: All systems reviewed & are unremarkable except as noted in HPI and below PMFSH Past Medical History Medical History Ibarra's esophagus Burst fracture of lumbar vertebra with routine healing Diverticulosis DVT (deep venous thrombosis) Esophageal stricture GERD (gastroesophageal reflux disease) HTN (hypertension) Hx of breast cancer Chemo/RTX Ischemic colitis Low bone mass Low folate Pulmonary embolism Pure hypercholesterolemia Vitamin D deficiency Surgical History Surgical History H/O bilateral cataract extraction H/O colonoscopy 2012 H/O left breast biopsy H/O right mastectomy H/O shoulder surgery Family History Family History Mother Hypertension, Onset Age: 89 Fibromyalgia Father Acute myocardial infarction, Onset Age: 85 Patient's father is Other Family history of arthritis Family history of congenital heart disease Family history of malignant neoplasm Social History Social History Smoking status: Never smoker Second hand tobacco smoke exposure: No Alcohol intake: never Substance use: never Substance use type: does not use Lack of Transportation: No Lack of Food: Never True Current Housing: I Have Housing Concerned About Future Housing: No Difficulty Paying Gas/Electric Bills: No Difficulty Paying for Meds: No Currently Unemployed: No Education: High School Diploma/GED Difficulty w/ Childcare or Family Care: No Living arrangements: alone Gender identity (if verbalized by the patient): Female Sexual Orientation (if Verbalized by the Patient): Straight or Heterosexual Spiritual care concerns: No Agree to blood products: Yes Meds Home Medications and Allergies Home Medications Medication Instructions Recorded Confirmed Type cholecalciferol (vitamin D3) 1,250 50,000 unit PO DIRECTED 06/17/19 10/16/23 History mcg (50,000 unit) tablet peg 400-propylene glycol (PF) 0.4 1 drp EACH EYE DAILY PRN Dry Eyes 07/01/20 10/16/23 History %-0.3 % eye drops in a dropperette (Systane Hydration (PF)) mecobalamin (vitamin B12) 1,000 1,000 mcg PO USEASDIRECTD 07/03/21 10/16/23 History mcg chewable tablet albuterol sulfate 90 mcg/actuation 2 inh inhalation Q4-6H #8.5 grams 08/17/22 10/16/23 Rx aerosol inhaler (ProAir HFA) meclizine 12.5 mg tablet 12.5 mg PO BID PRN motion sickness 08/17/22 10/16/23 Rx #30 tabs multivitamin 1 tablet PO DAILY 08/17/22 10/16/23 History pantoprazole 40 mg tablet,delayed 40 mg PO BID #180 tabs 07/02/23 10/16/23 Rx release Allergies Allergy/AdvReac Type Severity Reaction Status Date / Time tamoxifen Allergy Severe rash, Verified 10/30/23 08:56 blood clots Vital Signs Vital Signs - 24 hr 10/30/23 08:57 Temperature 97.4 F L Pulse Rate 93 Respiratory Rate 20 Blood Pressure 163/89 H Pulse Oximetry 98 Oxygen Delivery Room Air Exam Const: General: comfortable and no acute distress HENMT: Face/Nose/Sinus: Normal nares present Eyes: General: appearance normal, both eyes and all related structures Neck: Neck: no JVD Resp: Auscultation: clear to auscultation bilaterally Cardio: Rate: regular rate Rhythm: regular rhythm GI: Inspection: non-distended GI Palp: Yes Soft to palpation Skin: General skin exam: normal colo
[2023-10-30] MEDS: LACTATED RINGERS 1,000 ML 150 ML IV CONT (09:11)
--- NOTE | 2023-10-30 09:15 | WPDANESEPPF ---
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 Patient Data Age: 78 Gender: F Height: 1.57 m Weight: 72.4 kg Last Vital Signs Temp 97.4 F L 10/30/23 08:57 Pulse 93 10/30/23 08:57 Resp 20 10/30/23 08:57 BP 163/89 H 10/30/23 08:57 Pulse Ox 98 10/30/23 08:57 O2 Del Method Room Air 10/30/23 08:57 Allergies Allergy/AdvReac Type Severity Reaction Status Date / Time tamoxifen Allergy Severe rash, Verified 10/30/23 08:56 blood clots Home Medications Medication Instructions Recorded Confirmed Type cholecalciferol (vitamin D3) 1,250 50,000 unit PO DIRECTED 06/17/19 10/16/23 History mcg (50,000 unit) tablet peg 400-propylene glycol (PF) 0.4 1 drp EACH EYE DAILY PRN Dry Eyes 07/01/20 10/16/23 History %-0.3 % eye drops in a dropperette (Systane Hydration (PF)) mecobalamin (vitamin B12) 1,000 1,000 mcg PO USEASDIRECTD 07/03/21 10/16/23 History mcg chewable tablet albuterol sulfate 90 mcg/actuation 2 inh inhalation Q4-6H #8.5 grams 08/17/22 10/16/23 Rx aerosol inhaler (ProAir HFA) meclizine 12.5 mg tablet 12.5 mg PO BID PRN motion sickness 08/17/22 10/16/23 Rx #30 tabs multivitamin 1 tablet PO DAILY 08/17/22 10/16/23 History pantoprazole 40 mg tablet,delayed 40 mg PO BID #180 tabs 07/02/23 10/16/23 Rx release Patient hx anesthesia problems: none Family hx anesthesia problems: none Results Review: All pre-operative results and documents have been reviewed as part of the pre-operative evaluation. [facility] Past Medical History Medical History Godoy's esophagus Burst fracture of lumbar vertebra with routine healing Diverticulosis DVT (deep venous thrombosis) Esophageal stricture GERD (gastroesophageal reflux disease) HTN (hypertension) Hx of breast cancer Chemo/RTX Ischemic colitis Low bone mass Low folate Pulmonary embolism Pure hypercholesterolemia Vitamin D deficiency Surgical History Surgical History H/O bilateral cataract extraction H/O colonoscopy 2012 H/O left breast biopsy H/O right mastectomy H/O shoulder surgery Family History Family History Mother Hypertension, Onset Age: 89 Fibromyalgia Father Acute myocardial infarction, Onset Age: 85 Patient's father is Other Family history of arthritis Family history of congenital heart disease Family history of malignant neoplasm Social History Social History Smoking status: Never smoker Second hand tobacco smoke exposure: No Alcohol intake: never Substance use: never Substance use type: does not use Lack of Transportation: No Lack of Food: Never True Current Housing: I Have Housing Concerned About Future Housing: No Difficulty Paying Gas/Electric Bills: No Difficulty Paying for Meds: No Currently Unemployed: No Education: High School Diploma/GED Difficulty w/ Childcare or Family Care: No Living arrangements: alone Gender identity (if verbalized by the patient): Female Sexual Orientation (if Verbalized by the Patient): Straight or Heterosexual Spiritual care concerns: No Agree to blood products: Yes Anes - Eval Final PreProcedure Day of Procedure 10/30/23 09:15 Patient weight: normal Heart: regular rate and rhythm Lungs: clear to auscultation Airway: Mallampati scale class II Neurological: alert and oriented Last oral intake: >/= 8 hours ASA classification: III Emergent: no Anesthetic plan: proceed Anesthesia type and monitoring: general GIVS
[2023-10-30 09:43] VITALS: BP 149/79; PULSE 82; RESP 30; O2SAT 92
[2023-10-30 09:53] VITALS: BP 123/77; PULSE 81; RESP 27; O2SAT 95
[2023-10-30 10:03] VITALS: BP 135/88; PULSE 78; RESP 21; O2SAT 97
== END 2023-10-30 10:20 | disposition home or self-care (01) ==
PROVIDERS: PCP Internal Medicine; Referring Provider Internal Medicine; Visit Provider Internal Medicine Gastroenterology
PROC: 0DJ08ZZ Inspection of Upper Intestinal Tract, Via Natural or Artificial Opening Endoscopic (ICD-10-PCS; CPT 43235; principal; 2023-10-30 11:30)
DX: K21.00 Gastro-esophageal reflux disease with esophagitis, without bleeding (principal); K44.9 Diaphragmatic hernia without obstruction or gangrene; I10 Essential (primary) hypertension; E78.00 Pure hypercholesterolemia, unspecified; E55.9 Vitamin D deficiency, unspecified; Z86.718 Personal history of other venous thrombosis and embolism; Z86.711 Personal history of pulmonary embolism; Z92.3 Personal history of irradiation; Z92.21 Personal history of antineoplastic chemotherapy; Z85.3 Personal history of malignant neoplasm of breast; Z79.51 Long term (current) use of inhaled steroids; Z87.19 Personal history of other diseases of the digestive system
CPT/HCPCS: 43239; 88305; J2704; J7120

== ENCOUNTER 2024-05-15 14:17 | Outpatient (CLI) | payer MEDICARE, SELFPAY ==
--- NOTE | ~2024-05-15 | DEXA_ITS ---
Bone Density Report Name: NEVA REAVES Age: 78 Sex: Female Ethnicity: White Date of : 1945 Indication: postmenopausal; screening for osteoporosis; parental hip fracture; height loss; prior fracture; cancer; Referring Provider: DIANNE CALVIN Study: Bone densitometry was performed. Exam Date: May 15, 2024 Accession number: [id number] Bone Density: Region BMD T-score Z-score Classification AP Spine(L2, L3, L4) 0.810 -2.4 0.2 Osteopenia Femoral Neck (Left) 0.675 -1.6 0.6 Osteopenia Total Hip (Left) 0.794 -1.2 0.7 Osteopenia Femoral Neck (Right) 0.670 -1.6 0.6 Osteopenia Total Hip (Right) 0.743 -1.6 0.3 Osteopenia Total Hip Mean 0.768 -1.4 0.5 Osteopenia World Health Organization criteria for BMD impression classify patients as: Normal (T-score at or above -1.0), Osteopenia (T-score between -1.0 and -2.5), or Osteoporosis (T-score at or below -2.5). 10-year Fracture Risk: FRAX not reported because: Prior hip or vertebral fracture Clinical Information Provided by Patient: Have had a previous hip or vertebral fracture Has had a low trauma fracture Parent has had a hip fracture Has used the following medications: Fosamax (i.e. alendronate), Vitamin D, Calcium Has the following medical conditions: Cancer Patient maximum height was 64 Menopause Age: 64 Onset of menses at age 14 Number of children 1 Missed period for more than 6 months in a row Impression: The patient has low bone mass, based on the Total Spine T-score. The patient has risk factors, including: parental hip fracture, previous fracture. Discussion: INCREASED RISK OF FRACTURE DUE TO HISTORY OF FRACTURE. The patient's previous fracture puts the patient at high risk of a future fracture. In untreated patients, the risk of osteoporotic fracture increases approximately two-fold for each 1.0 SD decrease in T-score. Low bone density is not the only risk factor for fracture; also consider factors such as patient's age, frailty or poor health, risk of falling, risk of injury, previous osteoporotic fracture, family history of osteoporosis, cigarette smoking, low body weight, etc. Not everyone with a low trauma fracture has osteoporosis; osteomalacia and other metabolic bone disorders should also be considered. Patients who have osteoporosis should be evaluated for specific diseases and conditions (secondary causes) that may cause or contribute to bone loss and fracture risk. National Osteoporosis Foundation (NOF) recommends pharmacologic intervention for patients with a prior hip or vertebral fracture regardless of BMD T-score. The patient should follow a healthful lifestyle (good nutrition with adequate calcium and vitamin D, and appropriate weight-bearing exercise). Follow-Up: Consider a repeat BMD and Vertebral Fracture Assessment (VFA) exam in 2 years or sooner if medically necessary, to reassess this patient's status. Reported by: IGNACIA on 05/15/2024 2:46:00 PM. Reviewed, dictated and finalized at location AYonathan SINGH
== END 2024-05-15 14:18 | disposition home or self-care (01) ==
LOC: ANHIMG 14:19
PROVIDERS: PCP Internal Medicine; Visit Provider Obstetrics & Gynecology Gynecology
DX: Z78.0 Asymptomatic menopausal state (principal); M85.88 Other specified disorders of bone density and structure, other site; M85.852 Other specified disorders of bone density and structure, left thigh; M85.851 Other specified disorders of bone density and structure, right thigh
CPT/HCPCS: 77080

== ENCOUNTER 2024-06-25 13:25 | Outpatient (CLI) | payer MEDICARE, SELFPAY | END 2024-06-25 13:26 | disposition home or self-care (01) | LOC: MICIMG 13:28 | PROVIDERS: PCP Internal Medicine; Visit Provider Obstetrics & Gynecology Gynecology | DX: Z12.31 Encounter for screening mammogram for malignant neoplasm of breast (principal); R92.8 Other abnormal and inconclusive findings on diagnostic imaging of breast | CPT/HCPCS: 77063; 77067 ==

== ENCOUNTER 2024-12-30 01:38 | Day surgery (SDC) | payer MEDICARE, SELFPAY ==
[2024-12-15 15:33] VITALS: BMI 29.3
--- OUTSIDE RECORDS SUMMARY | 2024-12-30 01:43 | XMS_ITS | Clinical Summary ---
Author Organization [facility] Address [address] [place] [address] Care Team Providers Care Branch Credit Counselor Name Role Phone Ángel Francis MD Primary Care Provider +1- [phone] Allergies Active Allergy Reactions Criticality Noted Date Comments Tamoxifen Rash Medium 04/25/2018 Blood clots Medications pantoprazole DR (PROTONIX) 40 mg EC tablet Take 1 tablet (40 mg total) by mouth every 12 (twelve) hours Active cyanocobalamin (Vitamin B-12) 1,000 mcg tabletIndicatio ns:Prevention of Vitamin B12 Deficiency Take 1 tablet (1,000 mcg total) by mouth daily Active ergocalciferol (VITAMIN D) 50,000 unit capsuleIndicati ons:Vitamin D Deficiency Take 1 capsule (50,000 Units total) by mouth every 14 (fourteen) days 12 capsule 2 Active multivitamin capsule Take 1 capsule by mouth daily Active propylene glycol/peg 400/PF (SYSTANE, PF, OPHT) Administer into affected eye(s) as needed Active Active Problems Problem Noted Date Diagnosed Date Vitamin D deficiency 05/24/2020 Thrombocytosis 08/20/2018 Malignant neoplasm of upper- outer quadrant of right breast in female, estrogen receptor positive 12/31/2017 History of breast cancer 03/07/2011 History of right mastectomy 12/21/2010 Encounter for screening for malignant neoplasm o f breast 09/10/2008 Resolved Problems Problem Noted Date Diagnosed Date Resolved Date Encounter for monitoring sherri matase inhibitor therapy 12/31/2017 10/15/2019 Osteopenia 08/08/2017 04/24/2018 Immunizations Immunization Administration Dates Next Due Influenza, Quadrivalent, Spl it, Preservative Free, Intramuscular 01/23/2016 Influenza, Trivalent, Adjuva nted, Intramuscular 01/23/2018 Influenza, Trivalent, High D ose, Split, Preservative Free, Intramuscular 01/21/2019,01/21/2017,01/27/2015,01/27 Influenza, Trivalent, IM (MDV) 01/29/2013 Moderna SARS-CoV-2 Monovalen t Vaccination (12+ YRS) 02/20/2021,07/25/2020,06/24/2020 Pneumococcal Conjugate PCV 13 01/07/2019 Tdap 03/10/2017 Surgical History Surgery Date Site/Laterality Comments SIMPLE MASTECTOMY Simple Mastectomy Right Breast - (Added by TW Conv) SHOULDER SURGERY 02/25/2018 Right ORIF HUMERAL SHAFT FRACTURE 01/27/2018 - 02/26/2018 Right Medical History Medical History Date Comments Right Breast cancer ([facility] 01/26/2008 Osteopenia Sinusitis Seasonal allergies Shoulder fracture, right 01/2018 s/p CRUZ F Family History Medical History Relation Name Comments Heart attack Father Breast cancer Father's Sister 1 with recu rrence Colon cancer Father's Sister 1 Breast cancer Father's Sister 2 Other possible PUBLIC ADDRESS TECHNICIAN cancer Father's Sister 2 not ovarian ca Bilateral breast cancer Maternal cousin 1 Megan 2nd breast cancer Breast cancer Maternal cousin 1 Megan Breast cancer Maternal cousin 2 Florence Fibromyalgia Mother Cervical cancer Paternal Grandmother Relation Name Status Comments Father (Age 85) Father's Sister 1 Father's Sister 2 Maternal cousin 1 Megan Alive Maternal cousin 2 Florence Alive Mother (Age 89) Other No children Alive Paternal Grandmother Social History Tobacco Use Types Packs/Day Years Used Date Smoking Tobacco: Never Smokeless Tobacco: Never Tobacco Cessation:Counseling Given: Not Answered Comments No Sex and Gender Information Value Date Recorded Sex Assigned at Not on file Legal Sex Female 4:34 PM INTERMODAL CUSTOMER SERVICE Gender Identity Female 04/25/2018 9:24 AM INTERMODAL CUSTOMER SERVICE Sexual Orientation Not on file Obstetrics History Comments PUBLIC ADDRESS TECHNICIAN HISTORY: Menarche at age 14. Postmenopausal breast cancer. She experienced her natural menopause around age 54. 1, para 1. First term at age 28. She was on hormone replacement therapy from about age 54 to age 61, discontinued in 01/2008. She has never used fertility medications. She used oral contraceptive pills for about 15 years. She continues to follow regularly with her PUBLIC ADDRESS TECHNICIAN. Her uterus and ovaries are intact. Last Filed Vital Signs Vital Sign Reading Time Taken Comments Blood Pressure 137/85 10/13/2021 9:41 AM CDT Pulse 103 10/13/2021 9:41 AM CDT Temperature 36.5 C (97.7 F) 10/13/2021 9:41 AM CDT Respiratory Rate 18 10/14/2020 9:31 AM CDT Oxygen Saturation 95% 10/13/2021 9:41 AM CDT Inhaled Oxygen Concentration - - Weight 74.8 kg (165 lb) 12/19/2022 9:41 AM CDT Height 162.6 cm (5' 4) 12/19/2022 9:41 AM CDT Body Mass Index 28.32 12/19/2022 9:41 AM CDT Plan of Treatment Health Maintenance Due Date Last Done Comments Depression Screening 1945 Fall Risk Assessment 1945 Hepatitis C Screening 1945 Hepatitis B Screening 1964 Zoster Vaccine (1 of 2) 1996 Well Visit 65+ 07/10/2011 Pneumococcal vaccine 65+ (2 of 2 - PCV20 or PCV21) 01/08/2020 01/07/2019 Osteoporosis Screening-Bone Density Scan 04/30/2020 04/30/2018, 02/17/2016, 12/15/2013 Covid-19 Vaccine (4 - 2023-2 5 season) 2023 02/20/2021, 07/25/2020, 06/24/2020 Influenza Vaccine (#1) 2024 9, 01/23/2018, 01/21/2017, Additional history exists DTaP/Tdap/Td Vaccine (2 - Td or Tdap) 03/10/2027 03/10/2017 Breast Cancer Screening-Mammogram Discontinued 12/19/2022, 12/18/2021, 07/14/2020, Additional history exists Procedures Procedure Name Priority Date/Time Associated Diagnosis Comments SCREENING MAMMOGRAM LEFT W THAI UNILATERAL ONLY Schedule Routine, Read Routine (OP Routine) 12/19/2022 10:14 AM CDT History of malignant neoplasm of breast Encounter for screening mammogram for malignant neoplasm of breast DEXA AXIAL SKELETON BONE DENSITY 1 OR MORE SITES Schedule Routine, Read Routine (OP Routine) 04/30/2018 7:42 AM INTERMODAL CUSTOMER SERVICE History of right breast cancer from Last 3 Months or Most Recently Relevant to Health Maintenance Results * Screening Mammogram Left W Thai Unilateral Only (12/19/2022 10:14 AM CDT) Anatomical Region Laterality Modality Breast Left Mammography Narrative 12/20/2022 10:02 AM CDT Mammogram Technique: Left Breast Digital Breast Tomosynthesis, Unilateral C-view 2D Screening mammogram. Views obtained: left craniocaudal and left mediolateral oblique. Computer Aided Detection was performed. Mammogram Findings: The present examination has been compared to prior imaging studies performed at [facility] on 01/16/2013, 01/29/2014, 02/04/2015, 02/17/2016, 03/29/2017, 04/25/2018, 05/19/2019, 07/14/2020 and 12/18/2021. The breast is heterogeneously dense, which may obscure small masses. There is no suspicious abnormality in the left breast. There are no significant changes from the prior study. Patient status post contralateral mastectomy for personal history of breast cancer. Impression: There is no mammographic evidence of malignancy. Annual screening mammography is recommended. OVERALL FINAL ASSESSMENT: BI-RADS CATEGORY 1: Negative. Procedure Note Lou Galaviz MD - 12/20/2022 Mammogram Technique: Left Breast Digital Breast Tomosynthesis, Unilateral C-view 2D Screening mammogram. Views obtained: left craniocaudal and left mediolateral oblique. Computer Aided Detection was performed. Mammogram Findings: The present examination has been compared to prior imaging studies performed at [facility] on 01/16/2013, 01/29/2014,02/04/2015, 02/17/2016, 03/29/2017, 04/25/2018, 05/19/2019, 07/14/2020 and12/18/2021. The breast is heterogeneously dense, which may obscure small masses. There is no suspicious abnormality in the left breast. There are no significant changes from the prior study. Patient status post contralateral mastectomy for personal history ofbreast cancer. Impression: There is no mammographic evidence of malignancy. Annual screening mammography is recommended. OVERALL FINAL ASSESSMENT: BI-RADS CATEGORY 1: Negative. Eboni Awan INSTRUMENTATION AND CONTROLS TECHNICIAN IMG MAMMO PROCEDURES Fin al Result * Dexa Axial Skeleton Bone Density 1 or 2 Site (04/30/2018 7:42 AM INTERMODAL CUSTOMER SERVICE) Anatomical Region Laterality Modality Body N/A Radiographic Slime ging Narrative 05/02/2018 9:56 AM INTERMODAL CUSTOMER SERVICE Patient Name: Neva Douglas Date of : 1945 Date of scan: 04/25/2018 Bone mineral density was performed on a [employer] Discovery Densitometer. Machine Cross-calibration and Precision studies have been performed with a least significant change of 0.024 g/cm at the spine, 0.020 g/cm at the total proximal femur, and 0.014g/cm at the forearm. HISTORY: This is a 72 y.o. postmenopausal female with a history of breast cancer and low bone mass. Currently on treatment with Aromatase inhibitor, calcium, vitamin D. Previously treated with anticoagulants, Fosamax and Tamoxifen. With a current complaint of back and arm pain. History of tobacco use: History Smoking Status Never Smoker INDICATIONS: Menopause status, treatment monitoring, history of prior vertebral fracture, aromatase inhibitor use and history of low bone mass. FINDINGS: BONE MINERAL DENSITY OF THE LUMBAR SPINE Bone Mineral Density (BMD) of the lumbar spine was measured from L2-L4 and the average density was calculated to be 0.870 gm/cm. This corresponds to a T-score standard deviations from the mean of young adults of -1.9. When compared to the previous study of 02/17/2016 there has been a measured 0.029 gm/cm 3.4 % increase which is considered significant. BONE MINERAL DENSITY OF THE PROXIMAL FEMUR Bone Mineral Density (BMD) of the left hip total was found to be 0.806 gm/cm2. This corresponds to a T-score standard deviations from the mean of young adults of -1.1. Femoral neck is 0.619 gm/cm2 with a T-score of -2.1. When compared to the previous study of 02/17/2016 there has been a measured -0.047 gm/cm -5.5 % decrease which is considered significant. SUMMARY: Bone mineral density shows evidence of low bone mass in the spine and hip and moderately increased fracture risk. There is a significant increase noted in the spine and a significant decrease noted in the hip since the previous exam. ADDITIONAL COMMENTS: Please note that L-1 was excluded from the bone density analysis of the lumbar spine due to history of vertebral compression fracture. If the patient has a history of a fragility fracture, a fracture that occurred with trauma equivalent to a fall from a standing position or less, then the diagnosis is osteoporosis. The risk of osteoporotic fracture increases approximately 2-fold for each 1.0 SD decrease in T-score. However, low bone density is not the only risk factor for fracture. Other factors include patient s age, previous osteoporotic fracture or prior fracture as an adult, loss of height of greater than 2 inches, corticosteroid use, risk of falling, risk of injury, and family history of osteoporosis. Not everyone with low bone mineral density has osteoporosis. Osteomalacia and other metabolic bone disorders should also be considered where indicated. Patients who have osteoporosis should be evaluated for specific diseases and conditions (secondary causes) that may cause or contribute to bone loss. Consider repeating this study in 1-2 years to assess the patient s response to treatment, if applicable. It is recommended that any follow up exam be performed on the same machine if possible for better accuracy. DEFINITIONS: Osteoporosis: BMD at or below -2.5 T-score Osteopenia (low bone mass): BMD between -1.0 and-2.5 T-score. The Bone Health Program adopts the following WHO definitions: Osteoporosis: BMD below -2.5 S.D. as compared to the BMD of young normal adults. Osteopenia or Low Bone Mass: BMD between -1.0 and -2.5 S.D. below the BMD of young normal adults. Normal Bone Density: BMD equal to or greater than -1.0 S.D. as compared to the BMD of young normal adults. References: 1) Isaak, Annals of Internal Medicine 114(11): 919-923 (1990) 2) Cody, Lancet 341 : 72-75 (1992) 3) Milton, Journal Bone and Mineral Research 7(6): 633-8 (1991) 4) Ed, Journal Bone and Mineral Research 8(10):1227-33 (1992) The history and data sections of the bone mineral density scan were prepared by RT Pat who is accredited by the International Society of Clinical Densitometry. The overall patient assessment and scan interpretation were performed by Jossie Johnson M.D. who is certified by the International Society of Clinical Densitometry. [id number] Mag Jeffrey Ma, MD PhD IMG DXA PROCEDURES Fi nal Result from Last 3 Months or Most Recently Relevant to Health Maintenance Insurance [facility] MEDICARE [facility] MEDICARE [facility] Care Teams Branch Credit Counselor Relationship Specialty Start Date End Date Ángel Francis MD [address] [address] [facility] - General 08/28/16
--- OUTSIDE RECORDS SUMMARY | 2024-12-30 01:43 | XMS_ITS | Encounter Summary ---
Author Organization [facility] Address [address] [place] [address] Phone Care Team Providers Care Weatherstrip Machine Operator Name Role Phone Ángel Francis MD Primary Care Provider [phone]- [phone] Encounter Details Date Type Department Care Team (Latest Contact Info) Description 01/17/2016 Orders Only [facility] Scanning, Provider Social History Tobacco Use Types Packs/Day Years Used Date Smoking Tobacco: Never Assessed Comments Unknown Sex and Gender Information Value Date Recorded Sex Assigned at Not on file Legal Sex Female 4:34 PM INCOME TAX ADVISOR Gender Identity Female 04/25/2018 9:24 AM INCOME TAX ADVISOR Sexual Orientation Not on file documented as of this encounter Plan of Treatment Not on file documented as of this encounter Procedures Procedure Name Priority Date/Time Associated Diagnosis Comments SCAN - RADIOLOGY/IMAGING 01/17/2016 CARDIOLOGY DOCUMENT SCAN 01/17/2016 documented in this encounter Results * SCAN - CARDIOLOGY (01/17/2016) Anatomical Region Laterality Modality Other us Provider Scanning CV CARDIAC SERVICES PROCEDURES Final Result * SCAN - RADIOLOGY/IMAGING (01/17/2016) Anatomical Region Laterality Modality Other us Provider Scanning Final Result documented in this encounter Visit Diagnoses Not on filedocumented in this encounter Care Teams Weatherstrip Machine Operator Relationship Specialty Start Date End Date Ángel Francis MD [address] [place] [address] PCP - General 08/28/16 documented as of this encounter
--- OUTSIDE RECORDS SUMMARY | 2024-12-30 01:43 | XMS_ITS | Clinical Summary ---
Author Organization [facility] Address [address] [address] Phone Care Team Providers Care Food Processor Name Role Phone Ángel Francis DO Primary Care Provider [phone] Clara Guzman MD Unavailable + [phone] Social History Tobacco Use Types Packs/Day Years Used Date Smoking Tobacco: Never Assessed Comments Unknown Sex and Gender Information Value Date Recorded Sex Assigned at Not on file Legal Sex Female 10:57 PM CDT Gender Identity Not on file Sexual Orientation Not on file Plan of Treatment Health Maintenance Due Date Last Done Comments Hepatitis C Virus (HCV) Screening 1945 Zoster Immunization (1 of 2) 1996 Pneumococcal Immunization (50+ years) (2 of 2 - PCV20 or PCV21) 01/08/2020 01/07/2019 Respiratory Syncytial Virus (RSV) Immunization (Adult) (1 - 1-dose 75+ series) 2021 SARS-COV-2 Immunization ( season) 2023 02/20/2021, 07/25/2020, 06/24/2020 Influenza Immunization (#1) 12/28/202412/29, 01/23/2018, 01/21/2017, Additional history exists DTaP/Tdap/Td Immunization Discontinued 03/10/2017 TdaP Immunization Completed 03/10/2017 Pneumococcal Immunization Combined Discontinued 01/07/2019 Colonoscopy Discontinued 10/01/2019 Colorectal Cancer Screening Discontinued Cologuard Discontinued Hepatitis B Immunization Aged Out No longer eligible based on patient's age to complete this topic Human Papillomavirus (HPV) Immunization Aged Out No longer eligible based on patient's age to complete this topic Immunochemical Fecal Occult Blood Discontinued Meningococcal Immunization (ACWY) Aged Out No longer eligible based on patient's age to complete this topic Rotavirus Immunization Aged Out No lo nger eligible based on patient's age to complete this topic Procedures Procedure Name Priority Date/Time Associated Diagnosis Comments COLONOSCOPY Routine 10/01/2019 from Last 3 Months or Most Recently Relevant to Health Maintenance Results * COLONOSCOPY (10/01/2019) Francisco Roberto DO PROCEDURE/MINOR SURGICAL ORDERA BLES Edited Result - Final from Last 3 Months or Most Recently Relevant to Health Maintenance Insurance MEDICARE [facility] Care Teams Food Processor Relationship Specialty Start Date End Date Ángel Francis DO [address] [place], [place] [id number] PCP - General Internal Medicine 09/06/17 Clara Guzman MD [address] [facility] [address] [place], [place] [id number] Obstetrics & Gynecology 09/06/17
--- OUTSIDE RECORDS SUMMARY | 2024-12-30 01:43 | XMS_ITS | Encounter Summary ---
Author Organization [facility] Address [address] [place] [address] Phone Care Team Providers Care Oil Inspector Name Role Phone Ángel Francis MD Primary Care Provider [phone]- [phone] Encounter Details Date Type Department Care Team (Latest Contact Info) Description 09/07/2021 Orders Only [facility] Scanning, Provider Social History Tobacco Use Types Packs/Day Years Used Date Smoking Tobacco: Never Smokeless Tobacco: Never Comments No Sex and Gender Information Value Date Recorded Sex Assigned at Not on file Legal Sex Female 4:34 PM ICT BUSINESS ANALYST Gender Identity Female 04/25/2018 9:24 AM ICT BUSINESS ANALYST Sexual Orientation Not on file documented as of this encounter Plan of Treatment Not on file documented as of this encounter Procedures Procedure Name Priority Date/Time Associated Diagnosis Comments SCAN - RADIOLOGY/IMAGING 09/07/2021 documented in this encounter Results * SCAN - RADIOLOGY/IMAGING (09/07/2021) Anatomical Region Laterality Modality Other us Provider Scanning Final Result documented in this encounter Visit Diagnoses Not on filedocumented in this encounter Care Teams Oil Inspector Relationship Specialty Start Date End Date Ángel Francis MD [address] [facility] [address] [place] [address] PCP - General 08/28/16 documented as of this encounter
--- OUTSIDE RECORDS SUMMARY | 2024-12-30 01:43 | XMS_ITS | Encounter Summary ---
Author Organization [facility] Address [address] [place] [address] Phone Care Team Providers Care News Production Supervisor Name Role Phone Ángel Francis MD Primary Care Provider [phone]- [phone] Encounter Details Date Type Department Care Team (Latest Contact Info) Description 01/19/2016 Orders Only [facility] Scanning, Provider Social History Tobacco Use Types Packs/Day Years Used Date Smoking Tobacco: Never Assessed Comments Unknown Sex and Gender Information Value Date Recorded Sex Assigned at Not on file Legal Sex Female 4:34 PM CAR SPOTTER Gender Identity Female 04/25/2018 9:24 AM CAR SPOTTER Sexual Orientation Not on file documented as of this encounter Plan of Treatment Not on file documented as of this encounter Procedures Procedure Name Priority Date/Time Associated Diagnosis Comments SCAN - RADIOLOGY/IMAGING 01/19/2016 documented in this encounter Results * SCAN - RADIOLOGY/IMAGING (01/19/2016) Anatomical Region Laterality Modality Other us Provider Scanning Final Result documented in this encounter Visit Diagnoses Not on filedocumented in this encounter Care Teams News Production Supervisor Relationship Specialty Start Date End Date Ángel Francis MD [address] [facility] [address] [place] [address] PCP - General 08/28/16 documented as of this encounter
--- OUTSIDE RECORDS SUMMARY | 2024-12-30 01:43 | XMS_ITS | Clinical Summary ---
Author Organization [facility] Address [address] [place] [address] Care Team Providers Care Molding Manager Name Role Phone Unavailable Primary Care Provider Unavailabl e Social History Tobacco Use Types Packs/Day Years Used Date Smoking Tobacco: Never Assessed Comments Unknown Sex and Gender Information Value Date Recorded Sex Assigned at Not on file Legal Sex Female 12:19 PM ROLL HANDLER Gender Identity Not on file Sexual Orientation Not on file Plan of Treatment Health Maintenance Due Date Last Done Comments Hepatitis C 1963 DTaP, Tdap and Td Vaccines ( 1 - Tdap) 1965 Pneumococcal Vaccine: 50+ Ye ars (1 of 1 - PCV) 1996 Zoster Vaccines (1 of 2) 1996 Dexa Scan (General) 07/10/2011 RSV Immunization or 60+ Years (1 - 1-dose 75+ series) 2021 COVID-19 Vaccine ( - 2023-2 5 season) 2023 Meningococcal B Vaccine Aged Out No l onger eligible based on patient's age to complete this topic Meningococcal Vaccine Aged Out No danuta mirian eligible based on patient's age to complete this topic RSV Immunizations Under 20 Months Aged Out No longer eligible based on patient's age to complete this topic
[2024-12-30 09:46] VITALS: BP 163/84; PULSE 97; RESP 18; TEMP 36.1; O2SAT 98; BMI 29.3
[2024-12-30] MEDS: LACTATED RINGERS 1,000 ML 150 ML IV CONT (09:58)
--- NOTE | 2024-12-30 10:02 | WPDANESEPPF ---
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 Patient Data Age: 79 Gender: F Height: 1.55 m Weight: 70.4 kg Last Vital Signs Temp 36.1 C L 12/30/24 09:46 Pulse 97 12/30/24 09:46 Resp 18 12/30/24 09:46 BP 163/84 H 12/30/24 09:46 Pulse Ox 98 12/30/24 09:46 O2 Del Method Room Air 12/30/24 09:46 Allergies Allergy/AdvReac Type Severity Reaction Status Date / Time tamoxifen Allergy Severe rash, Verified 12/30/24 09:45 blood clots Home Medications ?Medication ?Instructions ?Recorded ?Confirmed ?Type cholecalciferol (vitamin D3) 1,250 50,000 unit PO DIRECTED 06/17/19 12/15/24 History mcg (50,000 unit) tablet peg 400-propylene glycol (PF) 0.4 1 drp EACH EYE DAILY PRN Dry Eyes 07/01/20 12/30/24 History %-0.3 % eye drops in a dropperette (Systane Hydration (PF)) mecobalamin (vitamin B12) 1,000 1,000 mcg PO USEASDIRECTD 07/03/21 12/30/24 History mcg chewable tablet pantoprazole 40 mg tablet,delayed 40 mg PO BID #180 tabs 06/26/24 12/30/24 Rx release acetaminophen 500 mg capsule 500 mg PO Q6H PRN pain 09/30/24 12/15/24 History albuterol sulfate 90 mcg/actuation 2 inh inhalation Q4-6H #8.5 grams 09/30/24 12/30/24 Rx aerosol inhaler (ProAir HFA) meclizine 12.5 mg tablet 12.5 mg PO BID PRN motion sickness 09/30/24 12/15/24 Rx #30 tabs Patient hx anesthesia problems: none Family hx anesthesia problems: none Results Review: All pre-operative results and documents have been reviewed as part of the pre-operative evaluation. [facility] Past Medical History Medical History Low folate Godoy's esophagus Esophageal stricture Ischemic colitis GERD (gastroesophageal reflux disease) Burst fracture of lumbar vertebra with routine healing Vitamin D deficiency Low bone mass Diverticulosis Pulmonary embolism DVT (deep venous thrombosis) HTN (hypertension) Hx of breast cancer Chemo/RTX Pure hypercholesterolemia Surgical History Surgical History H/O shoulder surgery H/O right mastectomy H/O left breast biopsy H/O colonoscopy 2012 H/O bilateral cataract extraction Family History Family History Mother Hypertension, Onset Age: 89 Fibromyalgia Father Acute myocardial infarction, Onset Age: 85 Patient's father is Other Family history of arthritis Family history of congenital heart disease Family history of malignant neoplasm Social History Social History Smoking status: Never smoker Second hand tobacco smoke exposure: No Alcohol intake: never Substance use: never Substance use type: does not use Lack of Transportation: No Lack of Food: Never True Current Housing: I Have Housing Concerned About Future Housing: No Difficulty Paying Gas/Electric Bills: No Difficulty Paying for Meds: No Currently Unemployed: No Education: High School Diploma/GED Difficulty w/ Childcare or Family Care: No Living arrangements: alone Gender identity (if verbalized by the patient): Female Sexual Orientation (if Verbalized by the Patient): Straight or Heterosexual Spiritual care concerns: No Agree to blood products: Yes Anes - Eval Final PreProcedure Day of Procedure 12/30/24 10:02 Patient weight: overweight Heart: regular rate and rhythm Lungs: clear to auscultation Airway: Mallampati scale class II Neurological: alert and oriented Last oral intake: >/= 8 hours ASA classification: III Emergent: no Anesthetic plan: proceed Anesthesia type and monitoring: general GIVS and standard monitoring Results Review: All pre-operative results and documents have been reviewed as part of the pre-operative evaluation. Informed Consent: The patient's anesthetic plan and its attendant risks and benefits were discussed with the patient/family/POA. Questions were solicited and answers provided to the satisfaction of the patient/family/POA.
--- NOTE | 2024-12-30 10:53 | PM.HPGS ---
History of Present Illness History of Present Illness Consent: Risks, benefits, and alternatives have been discussed and questions answered. Patient agrees to proceed with procedure. Chief complaint: Ibarra's esophagus without dysplasia Narrative: Lay Douglas is a 79 year old female with dysphagia, h/o ibarra's with last egd 2023 Review of Systems Review of Systems: All systems reviewed & are unremarkable except as noted in HPI and below PMFSH Past Medical History Medical History Low folate Ibarra's esophagus Esophageal stricture Ischemic colitis GERD (gastroesophageal reflux disease) Burst fracture of lumbar vertebra with routine healing Vitamin D deficiency Low bone mass Diverticulosis Pulmonary embolism DVT (deep venous thrombosis) HTN (hypertension) Hx of breast cancer Chemo/RTX Pure hypercholesterolemia Surgical History Surgical History H/O shoulder surgery H/O right mastectomy H/O left breast biopsy H/O colonoscopy 2012 H/O bilateral cataract extraction Family History Family History Mother Hypertension, Onset Age: 89 Fibromyalgia Father Acute myocardial infarction, Onset Age: 85 Patient's father is Other Family history of arthritis Family history of congenital heart disease Family history of malignant neoplasm Social History Social History Smoking status: Never smoker Second hand tobacco smoke exposure: No Alcohol intake: never Substance use: never Substance use type: does not use Lack of Transportation: No Lack of Food: Never True Current Housing: I Have Housing Concerned About Future Housing: No Difficulty Paying Gas/Electric Bills: No Difficulty Paying for Meds: No Currently Unemployed: No Education: High School Diploma/GED Difficulty w/ Childcare or Family Care: No Living arrangements: alone Gender identity (if verbalized by the patient): Female Sexual Orientation (if Verbalized by the Patient): Straight or Heterosexual Spiritual care concerns: No Agree to blood products: Yes Meds Home Medications and Allergies Home Medications ?Medication ?Instructions ?Recorded ?Confirmed ?Type cholecalciferol (vitamin D3) 1,250 50,000 unit PO DIRECTED 06/17/19 12/15/24 History mcg (50,000 unit) tablet peg 400-propylene glycol (PF) 0.4 1 drp EACH EYE DAILY PRN Dry Eyes 07/01/20 12/30/24 History %-0.3 % eye drops in a dropperette (Systane Hydration (PF)) mecobalamin (vitamin B12) 1,000 1,000 mcg PO USEASDIRECTD 07/03/21 12/30/24 History mcg chewable tablet pantoprazole 40 mg tablet,delayed 40 mg PO BID #180 tabs 06/26/24 12/30/24 Rx release acetaminophen 500 mg capsule 500 mg PO Q6H PRN pain 09/30/24 12/15/24 History albuterol sulfate 90 mcg/actuation 2 inh inhalation Q4-6H #8.5 grams 09/30/24 12/30/24 Rx aerosol inhaler (ProAir HFA) meclizine 12.5 mg tablet 12.5 mg PO BID PRN motion sickness 09/30/24 12/15/24 Rx #30 tabs Allergies Allergy/AdvReac Type Severity Reaction Status Date / Time tamoxifen Allergy Severe rash, Verified 12/30/24 09:45 blood clots Vital Signs Vital Signs - 24 hr 12/30/24 09:46 Temperature 97 F L Pulse Rate 97 Respiratory Rate 18 Blood Pressure 163/84 H Pulse Oximetry 98 Oxygen Delivery Room Air Exam Const: General: comfortable and no acute distress HENMT: Face/Nose/Sinus: Normal nares present Eyes: General: appearance normal, both eyes and all related structures Neck: Neck: no JVD Resp: Auscultation: clear to auscultation bilaterally Cardio: Rate: regular rate Rhythm: regular rhythm GI: Inspection: non-distended GI Palp: Yes Soft to palpation Skin: General skin exam: normal color Neuro: Speech: normal speech Extrem: General: normal to inspection Psych: Mental Status: mental status grossly normal Assessment and Plan Assessment and plan (1) Dysphagia: Code(s): R13.10 - Dysphagia, unspecified Status: Acute Assessment and Plan: egd (2) Ibarra's esophagus: Qualifiers: Ibarra's esophagus type: without dysplasia Qualified Code(s): K22.70 - Ibarra's esophagus without dysplasia Code(s): K22.70 - Ibarra's esophagus without dysplasia Status: Acute
--- NOTE | 2024-12-30 11:04 | S_PTH ---
PATIENT: Lay Douglas LOC: [facility]#:[id number] AGE/SX: 79/F ROOM: RE12/30/[address]: Madi Riddle MD : 1945 BED: DIS: 12/30/2024 SPEC #: [id number] RECD: 12/30/24 13:20 STATUS: JERRELL RERamez #: [id number] ANTELMO: 12/30/24 11:[address]: Madi Riddle DEPT: [facility] Surgical RECD BY: Navya Malave ENTERED: 12/30/24 13:20 SP TYPE: Surgical OTHR DR: Tu Stringer DO Tissues: A - Esophageal Biopsy Procedures: Hematoxylin and Eosin Stain Gross and Microscopic Level 4
[2024-12-30 11:06] VITALS: BP 151/83; PULSE 83; RESP 25; O2SAT 94
[2024-12-30 11:16] VITALS: BP 129/85; PULSE 88; RESP 24; O2SAT 97
[2024-12-30 11:26] VITALS: BP 138/86; PULSE 81; RESP 26; O2SAT 97
== END 2024-12-30 11:38 | disposition home or self-care (01) ==
PROVIDERS: PCP Internal Medicine; Referring Provider Nurse Practitioner Family; Visit Provider Internal Medicine Gastroenterology
PROC: 0DJ08ZZ Inspection of Upper Intestinal Tract, Via Natural or Artificial Opening Endoscopic (ICD-10-PCS; CPT 43249; principal; 2024-12-30 11:30)
DX: K22.2 Esophageal obstruction (principal); K22.10 Ulcer of esophagus without bleeding; K21.00 Gastro-esophageal reflux disease with esophagitis, without bleeding; K44.9 Diaphragmatic hernia without obstruction or gangrene; K31.7 Polyp of stomach and duodenum
CPT/HCPCS: 43249; 88305; C1726; J2704; J7120